=== PATIENT | female | born 1980 | race Caucasian/White ===

== ENCOUNTER 2018-12-12 15:04 | Emergency (ER) | payer OTHER ==
--- NOTE | 2018-12-12 16:15 | EDPHYS ---
Physician Documentation [facility] Name: Luana Israel Age: 38 yrs Sex: Female : 1980 Arrival Date: 12/12/2018 Time: 15:07 Bed 17 Private MD: ED Physician Steve Castaneda HPI: 12/12 16:09 This 38 yrs old Female presents to ER via Ambulatory with complaints of parviz Toothache. 16:09 The patient presents with pain, redness. The problem is located in the left buccal parviz mucosa. Onset: The symptoms/episode began/occurred 3 day(s) ago. Duration: The symptoms are continuous, and are steadily getting worse. Associated signs and symptoms: The patient has no apparent associated signs or symptoms. Severity of symptoms: At their worst the symptoms were mild, moderate. The patient has experienced similar episodes in the past, several times. 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 - Social history:: Smoking status: Patient uses tobacco products, smokes one pack cigarettes per day. - Ebola Screening: : No symptoms or risks identified at this time. - Family history:: not pertinent. ROS: 16:09 Constitutional: Negative for fever, chills, and weight loss, Eyes: Negative for injury, parviz pain, redness, and discharge, Neck: Negative for injury, pain, and swelling, Cardiovascular: Negative for chest pain, palpitations, and edema, Respiratory: Negative for shortness of breath, cough, wheezing, and pleuritic chest pain, Abdomen/GI: Negative for abdominal pain, nausea, vomiting, diarrhea, and constipation, Back: Negative for injury and pain, : Negative for injury, bleeding, discharge, and swelling, MS/Extremity: Negative for injury and deformity, Skin: Negative for injury, rash, and discoloration, Neuro: Negative for headache, weakness, numbness, tingling, and seizure. 16:09 ENT: Positive for dental pain. Exam: 16:09 Constitutional: This is a well developed, well nourished patient who is awake, alert, parviz and in no acute distress. Eyes: Pupils equal round and reactive to light, extra-ocular motions intact. Lids and lashes normal. Conjunctiva and sclera are non-icteric and not injected. Cornea within normal limits. Periorbital areas with no swelling, redness, or edema. ENT: Nares patent. No nasal discharge, no septal abnormalities noted. Tympanic membranes are normal and external auditory canals are clear. Oropharynx with no redness, swelling, or masses, exudates, or evidence of obstruction, uvula midline. Mucous membranes moist. Neck: Trachea midline, no thyromegaly or masses palpated, and no cervical lymphadenopathy. Supple, full range of motion without nuchal rigidity, or vertebral point tenderness. No Meningismus. Chest/axilla: Normal chest wall appearance and motion. Nontender with no deformity. No lesions are appreciated. Cardiovascular: Regular rate and rhythm with a normal S1 and S2. No gallops, murmurs, or rubs. Normal PMI, no JVD. No pulse deficits. Respiratory: Lungs have equal breath sounds bilaterally, clear to auscultation and percussion. No rales, rhonchi or wheezes noted. No increased work of breathing, no retractions or nasal flaring. Abdomen/GI: Soft, non-tender, with normal bowel sounds. No distension or tympany. No guarding or rebound. No evidence of tenderness throughout. Back: No spinal tenderness. No costovertebral tenderness. Full range of motion. Skin: Warm, dry with normal turgor. Normal color with no rashes, no lesions, and no evidence of cellulitis. MS/ Extremity: Pulses equal, no cyanosis. Neurovascular intact. Full, normal range of motion. Neuro: Awake and alert, GCS 15, oriented to person, place, time, and situation. Cranial nerves II-XII grossly intact. Motor strength 5/5 in all extremities. Sensory grossly intact. Cerebellar exam normal. Normal gait. Psych: Awake, alert, with orientation to person, place and time. Behavior, mood, and affect are within normal limits. 16:09 Head/face: Noted is swelling, tenderness, that is moderate. Vital Signs: 15:13 BP 132 / 71; Pulse 100; Resp 18 S; Temp 98.4(O); Pulse Ox 99% on R/A; Weight 95.25 kg; aa5 Height 5 ft. 3 in. (160.02 cm) (R); Pain 10/10; 15:13 Body Mass Index 37.20 (95.25 kg, 160.02 cm) aa5 MDM: 15:32 Patient medically screened. parviz Administered Medications: 16:27 Drug: Augmentin 875 mg Route: PO; hb 16:28 Follow up: Response: Medication administered at discharge. hb 16:27 Drug: [place] (7.5 mg-325 mg) 1 tabs Route: PO; hb 16:28 Follow up: Response: Medication administered at discharge. hb Disposition: 12/12/18 16:14 Discharged to Home. Impression: Dental caries - acute pain. - Condition is Stable. - Discharge Instructions: Dental Pain, Dental Pain, [id number]. - Prescriptions for Amoxicillin 500 mg Oral Capsule - take 1 capsule by ORAL route every 8 hours for 10 days; 30 tablet. Tylenol- Codeine #3 300-30 mg Oral Tablet - take 2 tablets by ORAL route every 6 hours As needed; 24 tablet. - Medication Reconciliation Form, Thank You Letter, Antibiotic Education, Prescription Opioid Use, Work release form form. - Follow up: Private Physician; When: 2 - 3 days; Reason: Recheck today's complaints, Continuance of care, Re-evaluation by your physician. Follow up: Cruzito Pak DDS; When: 2 - 3 days; Reason: Recheck today's complaints, Re-evaluation by your physician. - Problem is new. - Symptoms have improved. Signatures: Steve Castaneda MD MD cha Calderon, Audri, RN RN [facility] Ania Bartlett RN RN Corrections: (The following items were deleted from the chart) 16:32 16:14 12/12/2018 16:14 Discharged to Home. Impression: Dental caries - acute pain. hb Condition is Stable. Forms are Medication Reconciliation Form, Thank You Letter, Antibiotic Education, Prescription Opioid Use. Follow up: Private Physician; When: 2 - 3 days; Reason: Recheck today's complaints, Continuance of care, Re-evaluation by your physician. Follow up: Cruzito Pak; When: 2 - 3 days; Reason: Recheck today's complaints, Re-evaluation by your physician. Problem is new. Symptoms have improved. [facility]
--- NOTE | 2018-12-12 16:15 | ER ---
Nurse's Notes [facility] Name: Luana Israel Age: 38 yrs Sex: Female : 1980 Arrival Date: 12/12/2018 Time: 15:07 Bed 17 Private MD: Diagnosis: Dental caries-acute pain Presentation: 12/12 15:12 Presenting complaint: Patient states: "I started with a toothache a few days ago and aa5 now the whole left side of my face hurts". Transition of care: patient was not received from another setting of care. Onset of symptoms was November 2018. Risk Assessment: Do you want to hurt yourself or someone else? Patient reports no desire to harm self or others. Initial Sepsis Screen: Does the patient meet any 2 criteria? No. Patient's initial sepsis screen is negative. Does the patient have a suspected source of infection? No. Patient's initial sepsis screen is negative. Care prior to arrival: None. 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 - Social history:: Smoking status: Patient uses tobacco products, smokes one pack cigarettes per day. - Ebola Screening: : No symptoms or risks identified at this time. - Family history:: not pertinent. Screenin:00 Abuse screen: Denies threats or abuse. Denies injuries from another. Nutritional hb screening: No deficits noted. Tuberculosis screening: No symptoms or risk factors identified. Fall Risk None identified. Assessment: 16:00 General: Appears in no apparent distress. Behavior is calm, cooperative. Pain: Pain hb currently is 10 out of 10 on a pain scale. Neuro: Level of Consciousness is awake, alert, obeys commands, Oriented to person, place, time, situation. Cardiovascular: Capillary refill < 3 seconds Patient's skin is warm and dry. Respiratory: Airway is patent Trachea midline Respiratory effort is even, unlabored, Respiratory pattern is regular, symmetrical. GI: No signs and/or symptoms were reported involving the gastrointestinal system. : No signs and/or symptoms were reported regarding the genitourinary system. EENT: Reports left upper molar pain. Derm: Skin is intact, is healthy with good turgor. Musculoskeletal: No signs and/or symptoms reported regarding the musculoskeletal system. Vital Signs: 15:13 BP 132 / 71; Pulse 100; Resp 18 S; Temp 98.4(O); Pulse Ox 99% on R/A; Weight 95.25 kg; aa5 Height 5 ft. 3 in. (160.02 cm) (R); Pain 10/10; 15:13 Body Mass Index 37.20 (95.25 kg, 160.02 cm) [facility] ED Course: 15:07 Patient arrived in ED. mr 15:12 Arm band placed on. [facility] 15:13 Triage completed. [facility] 15:32 Steve Castaneda MD is Attending Physician. [facility] 16:00 Patient has correct armband on for positive identification. Bed in low position. Call hb light in reach. Side rails up X 1. 16:12 Ania Bartlett, RN is Primary Nurse. 16:12 Cruzito Pak DDS is Referral Physician. [facility] 16:30 No provider procedures requiring assistance completed. Patient did not have IV access hb during this emergency room visit. Administered Medications: 16:27 Drug: Augmentin 875 mg Route: PO; hb 16:28 Follow up: Response: Medication administered at discharge. hb 16:27 Drug: Angora (7.5 mg-325 mg) 1 tabs Route: PO; hb 16:28 Follow up: Response: Medication administered at discharge. hb Outcome: 16:14 Discharge ordered by . parviz 16:30 Discharged to home ambulatory. hb 16:30 Condition: stable 16:30 Discharge instructions given to patient, Instructed on discharge instructions, follow up and referral plans. medication usage, Demonstrated understanding of instructions, follow-up care, medications, Prescriptions given X 2. 16:32 Patient left the ED. hb Signatures: Steve Castaneda MD MD cha Rivera, Mary mr DaxEm, RN RN [facility] Ania Bartlett, RN RN hb
[2018-12-12] MEDS ORDERED: HYDROCODONE/APAP 7.5/325 MG TAB ONE (16:33)
[2018-12-12] MEDS ORDERED: AMOX/K CLAV 875 MG TAB ONE (16:33)
== END 2018-12-12 16:32 | disposition home or self-care (01) ==
LOC: ER 15:04
DX: K02.9 Dental caries, unspecified (principal); F17.210 Nicotine dependence, cigarettes, uncomplicated
CPT/HCPCS: 99283

== ENCOUNTER 2020-11-26 09:57 | Emergency (ER) | payer SELFPAY ==
--- OUTSIDE RECORDS SUMMARY | 2020-11-26 10:25 | XMS REPORT | Continuity of Care Document ---
:1980 Author Organization [facility] Address [address] [place] [address] [place] [id number] Care Team Providers Name Role Phone Unavailable Unavailable Unavailable Problems This patient has no known problems. Allergies, Adverse Reactions, Alerts This patient has no known allergies or adverse reactions. Medications This patient has no known medications. Procedures This patient has no known procedures. Results This patient has no known results.
[2020-11-26] MEDS ORDERED: SMZ./TMP. 800/160 MG TABLET ONE (13:25)
[2020-11-26] MEDS ORDERED: CODEINE 30MG/APAP 300MG TAB ONE (13:26)
[2020-11-26] MEDS ORDERED: DOXYCYCLINE 100 MG CAP PO ONE (13:26)
--- NOTE | 2020-11-26 13:26 | ER ---
Nurse's Notes [facility] Name: Luana Mcneil Age: 40 yrs Sex: Female : 1980 Arrival Date: 11/26/2020 Time: 10:00 Bed 12 Private MD: Diagnosis: Cellulitis of left upper limb-elbow Presentation: 11/26 10:51 Chief complaint: Patient states: redness and swelling to left elbow X 2 days, thinks iw something bit her. Coronavirus screen: At this time, the client does not indicate any symptoms associated with coronavirus-19. Ebola Screen: Patient negative for fever greater than or equal to 101.5 degrees Fahrenheit, and additional compatible Ebola Virus Disease symptoms Patient denies exposure to infectious person. Patient denies travel to an Ebola-affected area in the 21 days before illness onset. No symptoms or risks identified at this time. Initial Sepsis Screen: Does the patient meet any 2 criteria? No. Patient's initial sepsis screen is negative. Does the patient have a suspected source of infection? No. Patient's initial sepsis screen is negative. Risk Assessment: Do you want to hurt yourself or someone else? Patient reports no desire to harm self or others. Onset of symptoms was November 24, 2020. 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 - Social history:: Smoking status: Patient reports the use of cigarette tobacco products, smokes one pack cigarettes per day. Screenin:40 Abuse screen: Denies threats or abuse. Nutritional screening: No deficits noted. aa5 Tuberculosis screening: No symptoms or risk factors identified. Fall Risk None identified. Assessment: 12:40 General: Appears uncomfortable, Behavior is calm, cooperative. Pain: Complains of pain aa5 in left elbow. Neuro: Level of Consciousness is awake, alert, obeys commands, Oriented to person, place, time, situation. Cardiovascular: Patient's skin is warm and dry. Respiratory: Airway is patent Respiratory effort is even, unlabored, Respiratory pattern is regular, symmetrical. GI: No signs and/or symptoms were reported involving the gastrointestinal system. : No signs and/or symptoms were reported regarding the genitourinary system. EENT: No signs and/or symptoms were reported regarding the EENT system. Derm: Skin is pink, warm \T\ dry. swelling and redness noted to left elbow. Musculoskeletal: Range of motion: intact in all extremities. 13:25 Reassessment: Patient is alert, oriented x 3, equal unlabored respirations, skin aa5 warm/dry/pink. 14:00 Reassessment: Patient is alert, oriented x 3, equal unlabored respirations, skin aa5 warm/dry/pink. Redness and erythema outlined per PA. 14:40 Reassessment: LEFT elbow cleaned with chlorexidine, rinsed with saline, dressed with sr5 sterile gauze pads and kerlix. Patient provided with a sling for comfort. At discharge pt fully AA\T\Ox4, clear speech, steady gait, equal unlabored resp, skin warm/dry/nc exception LEFT elbow. Discharge instructions discussed, teach back provided, steady gait out of ER. Vital Signs: 10:51 BP 113 / 78; Pulse 99; Resp 16; Temp 98.5; Pulse Ox 100% on R/A; Weight 82.55 kg; iw Height 5 ft. 2 in. (157.48 cm); Pain 10/10; 14:40 BP 131 / 74; Pulse 102; Resp 14; Temp 97.2; Pulse Ox 98% on R/A; sr5 10:51 Body Mass Index 33.29 (82.55 kg, 157.48 cm) iw ED Course: 10:00 Patient arrived in ED. as 10:52 Triage completed. iw 12:35 Steve Trevino PA is PHCP. cp 12:36 Jhon Valdovinos MD is Attending Physician. cp 12:40 Patient has correct armband on for positive identification. aa5 13:05 Em Verduzco, RN is Primary Nurse. aa5 14:20 XRAY Elbow LEFT 3 view In Process Unspecified. EDMS 14:40 Dressings: Kerlix X 1; left elbow non-adherent dressing x 1 left elbow. Sling applied sr5 to left arm. 14:40 Patient did not have IV access during this emergency room visit. aa5 14:40 No provider procedures requiring assistance completed. aa5 Administered Medications: 13:25 Drug: Tylenol #3 (300 mg-30 mg) 2 tabs Route: PO; aa5 13:25 Drug: Bactrim (160 mg-800 mg (DS) 1 tablet Route: PO; aa5 13:25 Drug: Doxycycline 100 mg Route: PO; aa5 Outcome: 13:17 Discharge ordered by . margret 14:40 Discharged to home ambulatory, with family. sr5 14:40 Condition: good 14:40 Discharge instructions given to patient, Instructed on discharge instructions, follow up and referral plans. medication usage, wound care, Demonstrated understanding of instructions, follow-up care, medications, wound care, Prescriptions given X 4. 14:41 Patient left the ED. aa5 Signatures: Dispatcher [employer] EDMS Sandra Gutiérrez Irene, RN RN Em Richey RN RN aa5 Steve Trevino PA PA cp Resecker, Yifan, RN RN sr5 Corrections: (The following items were deleted from the chart) 10:53 10:51 Pulse 99bpm; Resp 16bpm; Pulse Ox 100% RA; Temp 98.5F; 82.55 kg; Height 5 ft. 2 iw in.; BMI: 33.2; Pain 10/10; iw 18:59 14:37 Patient left the ED. aa5 aa5
--- NOTE | 2020-11-26 13:26 | EDPHYS ---
Physician Documentation [facility] Name: Luana Mcneil Age: 40 yrs Sex: Female : 1980 Arrival Date: 11/26/2020 Time: 10:00 Bed 12 Private MD: ED Physician Jhon Valdovinos HPI: 11/26 12:50 This 40 yrs old Female presents to ER via Ambulatory with complaints of cp Insect Bite, Elbow Swelling. 12:50 The patient or guardian complains of pain, that is acute, swelling, tenderness. The cp complaints affect the posterior left elbow. 12:50 Context: resulted from possible insect bite. Onset: The symptoms/episode began/occurred cp 2 day(s) ago. Treatment prior to arrival includes: no previous treatment. Associated signs and symptoms: Pertinent positives: erythema, swelling, warmth, of the posterior aspect left elbow, Pertinent negatives: decreased range of motion, fever, numbness, tingling. 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 - Social history:: Smoking status: Patient reports the use of cigarette tobacco products, smokes one pack cigarettes per day. ROS: 12:52 Constitutional: Negative for body aches, chills, fever, poor PO intake. cp 12:52 MS/extremity: Positive for erythema, pain, swelling, tenderness, of the posterior left cp elbow, Negative for injury or acute deformity, decreased range of motion, paresthesias. Exam: 12:57 Constitutional: The patient appears in no acute distress, alert, awake, non-toxic, well cp developed, well nourished. 12:57 Head/Face: Normocephalic, atraumatic. cp 12:57 Cardiovascular: Rate: normal. 12:57 Respiratory: the patient does not display signs of respiratory distress, Respirations: normal, no use of accessory muscles, labored breathing, is not present. 12:57 Abdomen/GI: Exam negative for discomfort, distension, guarding, Inspection: abdomen appears normal. 12:57 Musculoskeletal/extremity: Extremities: grossly normal except: noted in the posterior left elbow: erythema, pain, swelling, tenderness, ROM: full passive range of motion, in the left elbow, mild pain with ROM left elbow, Pulses: noted to be 2+ in the left radial artery. 12:57 Skin: abscess, not appreciated, cellulitis, that is mild, irregular, on the posterior left elbow, no circumferential swelling and/or erythema noted to left elbow joint. Vital Signs: 10:51 BP 113 / 78; Pulse 99; Resp 16; Temp 98.5; Pulse Ox 100% on R/A; Weight 82.55 kg; iw Height 5 ft. 2 in. (157.48 cm); Pain 10/10; 14:40 BP 131 / 74; Pulse 102; Resp 14; Temp 97.2; Pulse Ox 98% on R/A; sr5 10:51 Body Mass Index 33.29 (82.55 kg, 157.48 cm) iw MDM: 12:49 Patient medically screened. cp 12:55 Differential diagnosis: closed fracture, cellulitis, abscess, bursitis, septic joint. cp 13:16 Counseling: I had a detailed discussion with the patient and/or guardian regarding: the cp historical points, exam findings, and any diagnostic results supporting the discharge/admit diagnosis, to return to the emergency department if symptoms worsen or persist or if there are any questions or concerns that arise at home. 13:16 Response to treatment: the patient's symptoms have mildly improved after treatment, and cp as a result, I will discharge patient. Special discussion: Return to ED worsening swelling redness, fever, worsening pain. 14:02 Data reviewed: vital signs, nurses notes, radiologic studies, plain films. Test cp interpretation: by ED physician or midlevel provider: xrays of left elbow negative for foreign body, negative for effusion. 11/26 13:17 Order name: Urine Dipstick--Ancillary (enter results); Complete Time: 14:04 bd 11/26 14:04 Interpretation: Normal except: UESTR TRACE. cp 11/26 13:17 Order name: Urine --Ancillary (enter results); Complete Time: 14:04 bd 11/26 12:53 Order name: XRAY Elbow LEFT 3 view cp 11/26 12:53 Order name: Misc. Order: outline area of erythema; Complete Time: 14:11 cp 11/26 12:53 Order name: Urine Test (obtain specimen); Complete Time: 13:18 cp Administered Medications: 13:25 Drug: Tylenol #3 (300 mg-30 mg) 2 tabs Route: PO; aa5 13:25 Drug: Bactrim (160 mg-800 mg (DS) 1 tablet Route: PO; aa5 13:25 Drug: Doxycycline 100 mg Route: PO; aa5 Disposition: 14:40 Chart complete. cp 15:55 Co-signature as Attending Physician, Jhon Valdovinos MD. ma2 Disposition: 11/26/20 13:17 Discharged to Home. Impression: Cellulitis of left upper limb - elbow. - Condition is Stable. - Discharge Instructions: Cellulitis, Adult. - Prescriptions for Doxycycline Hyclate 100 mg Oral Tablet - take 1 tablet by ORAL route every 12 hours; 20 tablet. Diclofenac Sodium 75 mg Oral Tablet, Delayed Release (E.C.) - take 1 tablet by ORAL route 2 times per day; 20 tablet. Bactrim DS 800- 160 mg Oral Tablet - take 1 tablet by ORAL route every 12 hours for 10 days; 20 tablet. Diflucan 150 mg Oral Tablet - take 1 tablet by ORAL route one time for 1 day; 1 tablet. - Medication Reconciliation Form, Thank You Letter, Antibiotic Education, Prescription Opioid Use, Work release form form. - Follow up: Private Physician; When: 1 - 2 days; Reason: Recheck today's complaints. - Problem is new. - Symptoms have improved. Signatures: Dispatcher [employer] Margarita Plunkett RN RN Em Verduzco RN RN aa5 Steve Trevino PA PA cp Jhon Valdovinos MD MD ma2 Corrections: (The following items were deleted from the chart) 14:18 13:21 Elbow Left 3 View ordered. EDAR EDAR 14:37 13:17 11/26/2020 13:17 Discharged to Home. Impression: Cellulitis of left upper limb - aa5 elbow. Condition is Stable. Forms are Medication Reconciliation Form, Thank You Letter, Antibiotic Education, Prescription Opioid Use. Follow up: Private Physician; When: 1 - 2 days; Reason: Recheck today's complaints. Problem is new. Symptoms have improved. cp
[2020-11-26 13:57] LABS: Urine Blood NEGATIVE (NEG); Urine Glucose NEGATIVE (NEG); Urine Protein NEGATIVE (NEG)
--- NOTE | 2020-11-26 14:41 | RAD REPORT ---
EXAM DESCRIPTION: RAD - Elbow Left 3 View - 11/26/2020 2:20 pm CLINICAL HISTORY: Pain;Swellingpossible insect bite COMPARISON: None. FINDINGS: No fracture is identified and no elevated posterior fat pad. There is no dislocation or pe riosteal reaction noted. No air or foreign body in the soft tissues. Soft tissues along the posterom edial aspect of the elbow joint are edematous. IMPRESSION: Soft tissue swelling with no air or foreign body seen. No bone or joint abnormality of the left elbow.
[2020-11-26 14:42] VITALS: BP 113/78; TEMP 98.5; O2SAT 100
== END 2020-11-26 14:37 | disposition home or self-care (01) ==
LOC: ER 09:57
DX: L03.114 Cellulitis of left upper limb (principal); F17.210 Nicotine dependence, cigarettes, uncomplicated
CPT/HCPCS: 81003; 81025; 99284

== ENCOUNTER 2023-08-28 15:31 | Emergency (ER) | payer SELFPAY ==
--- OUTSIDE RECORDS SUMMARY | 2023-08-28 15:34 | XMS REPORT | Continuity of Care Document ---
:1980 Author Organization [facility] t Address [address] [place] [address] Care Team Providers Name Role Phone Unavailable Unavailable Unavailable Problems This patient has no known problems. Allergies, Adverse Reactions, Alerts This patient has no known allergies or adverse reactions. Medications This patient has no known medications. Procedures This patient has no known procedures. Encounters Start End Encounter Admission Attending Care Care Encounter Source Date/Time Date/Time Type Type Clinicians Facility Department ID 2019-11-29 2019-11-29 Emergency E [facility] [id number] 22:11:00 22:11:00 [facility] 2019-08-25 2019-08-25 Emergency E [facility] [id number] 18:46:00 18:46:00 [facility] 2019-04-30 2019-04-30 Emergency E [facility] [id number] 06:41:00 06:41:00 [facility] Results This patient has no known results.
[2023-08-28 16:58] LABS: Urine Bacteria <20 /HPF (<20); Urine Bilirubin NEGATIVE (Negative); Urine Blood Negative (Negative); Urine Clarity Clear (Clear); Urine Color Yellow (Yellow); Urine Glucose NEGATIVE (Negative); Urine Mucus Slight /HPF (None Seen); Urine Protein TRACE (Negative); Urine RBC <5 /HPF (None Seen); Urine Urobilinogen Normal (Normal)
--- NOTE | 2023-08-28 19:11 | EDPHYS ---
Physician Documentation [facility] Name: Luana Mcneil Age: 43 yrs Sex: Female : 1980 Arrival Date: 08/28/2023 Time: 15:31 Bed 10 Private MD: ED Physician Tian Bird HPI: 08/28 16:15 This 43 yrs old Female presents to ER via Ambulatory with complaints of STD Exposure. cp 16:15 The patient presents with a possible exposure to a sexually transmitted disease, cp vaginal discharge, that is white discharge. Onset: The symptoms/episode began/occurred today. Associated signs and symptoms: Pertinent negatives: fever, urinary frequency, vaginal bleeding, abdominal pain. 16:15 Severity of symptoms: in the emergency department the symptoms are unchanged, despite cp home interventions. The patient is sexually active, does not use protection during intercourse. 16:15 Patient expresses concern about possible STI. Reports recent release from incarceration cp and c/o vaginal discharge with odor. 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 - Social history:: Smoking status: Patient reports the use of cigarette tobacco products. ROS: 16:20 Constitutional: Negative for chills, fever, cp 16:20 Cardiovascular: Negative for chest pain, cp 16:20 Respiratory: Negative for cough, shortness of breath, 16:20 Abdomen/GI: Negative for abdominal pain, nausea, vomiting, and diarrhea, 16:20 : Positive for vaginal discharge, vaginal odor, Negative for urinary symptoms, pelvic pain, flank pain, vaginal bleeding, 16:20 Neuro: Negative for altered mental status, dizziness, headache, weakness, 16:20 All other systems are negative, Exam: 16:25 Constitutional: The patient appears in no acute distress, alert, awake, non-toxic, well cp developed, well nourished, 16:25 Head/Face: Normocephalic, atraumatic. cp 16:25 Eyes: Periorbital structures: appear normal, Conjunctiva: normal, Sclera: no appreciated abnormality, Lids and lashes: appear normal, bilaterally, 16:25 ENT: External ear(s): are unremarkable, Nose: is normal, Mouth: Lips: moist, Oral mucosa: pink and intact, moist, Posterior pharynx: is normal, airway is patent, no erythema, no exudate, 16:25 Chest/axilla: Inspection: normal, 16:25 Cardiovascular: Rate: normal, Rhythm: regular, 16:25 Respiratory: the patient does not display signs of respiratory distress, Respirations: normal, no use of accessory muscles, no retractions, labored breathing, is not present, 16:25 Abdomen/GI: Inspection: abdomen appears normal, Palpation: abdomen is soft and non-tender, in all quadrants, 16:25 Back: CVA tenderness, is absent, 16:25 : Pelvic Exam: External exam: is normal, Speculum exam: no bleeding is noted, no cervicitis, bimanual exam reveals no cervical motion tenderness, discharge, white, the nurse was present for the exam, Sexual behavior: the patient is sexually active, Vital Signs: 15:45 BP 141 / 92; Pulse 96; Resp 16; Temp 98.5; Pulse Ox 99% on R/A; Weight 96.16 kg; Height iw 5 ft. 3 in. ; Pain 0/10; 15:45 Body Mass Index 37.55 (96.16 kg, 160.02 cm) iw 15:45 Pain Scale: Adult iw MDM: 15:46 Patient medically screened. cp 19:10 Data reviewed: vital signs, nurses notes, lab test result(s). cp 19:10 Differential diagnosis: ectopic , molar preganancy, pelvic inflammatory cp disease, urinary tract infection, vaginosis. 08/29 17:13 ED course: . ED course: unable to contact patient at number in chart to inform of lab cp results. 08/28 16:05 Order name: GC (Abimael/Chl) Probe VAGINAL (Do not order if pt is under 13, order Culture cp instead) 08/28 16:05 Order name: Urinalysis W/Microscopic; Complete Time: 17:28 cp 08/28 17:28 Interpretation: Reviewed. cp 08/28 16:05 Order name: PREGU; Complete Time: 17:28 cp 08/28 16:05 Order name: Wet Prep; Complete Time: 19:03 cp Administered Medications: 08/28 19:45 Not Given (Patient Eloped): rocephin (ceftriaxone)250 mg IM once iw 19:45 Not Given (Patient Eloped): azithromycin1 grams PO once iw Disposition Summary: 08/28/23 19:11 Discharge Ordered Notes: Location: Home cp Problem: new cp Symptoms: have improved cp Condition: Stable cp Diagnosis - Acute vaginitis cp - Encounter for screening for infections with a predominantly sexual mode of cp transmission Followup: cp - With: Private Physician - When: 2 - 3 days - Reason: Worsening of condition Discharge Instructions: - Discharge Summary Sheet cp - Bacterial Vaginosis cp - Health Maintenance, Female cp - Preventing Sexually Transmitted Infections, Adult cp Forms: - Medication Reconciliation Form cp - Thank You Letter cp - Antibiotic Education cp - Prescription Opioid Use cp - Patient Portal Instructions cp - Leadership Thank You Letter cp Prescriptions: - Metronidazole 500 mg Oral tablet - take 1 tablet ORAL route every 12 hours for 7 days; 14 tablet; Refills: 0, cp Product Selection Permitted Addendum: 08/30/2023 09:02 Co-signature as Attending Physician, Tian Bird MD I reviewed the patient's care r n provided by the Advanced Practice Provider and agree with the diagnosis and treatment plan. Signatures: Dispatcher [employer] Margarita Plunkett RN RN iw Nieto, Roman, MD MD rn Page, Corey, PA PA cp
--- NOTE | 2023-08-28 19:11 | ER ---
Nurse's Notes [facility] Name: Luana Mcneil Age: 43 yrs Sex: Female : 1980 Arrival Date: 08/28/2023 Time: 15:31 Bed 10 Private MD: Diagnosis: Acute vaginitis;Encounter for screening for infections with a predominantly sexual mode of transmission Presentation: 08/28 15:45 Chief complaint: Patient states: abnormal vaginal discharge and odor today, she just iw got out of senior care 9 days ago , denies pain, denies burning with urination. Coronavirus screen: At this time, the client does not indicate any symptoms associated with coronavirus-19. Ebola Screen: Patient negative for fever greater than or equal to 101.5 degrees Fahrenheit, and additional compatible Ebola Virus Disease symptoms Patient denies exposure to infectious person. Patient denies travel to an Ebola-affected area in the 21 days before illness onset. No symptoms or risks identified at this time. Initial Sepsis Screen: Does the patient meet any 2 criteria? No. Patient's initial sepsis screen is negative. Does the patient have a suspected source of infection? No. Patient's initial sepsis screen is negative. Risk Assessment: Do you want to hurt yourself or someone else? Patient reports no desire to harm self or others. Onset of symptoms was August 28, 2023. 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 - Social history:: Smoking status: Patient reports the use of cigarette tobacco products. Screenin:44 [facility] ED Fall Risk Assessment (Adult) Score/Fall Risk Level 0 - 2 = Low Risk. Abuse iw screen: Denies threats or abuse. Denies injuries from another. Nutritional screening: No deficits noted. Tuberculosis screening: No symptoms or risk factors identified. Assessment: 16:00 General: Appears in no apparent distress. comfortable, Behavior is calm, cooperative. iw 19:26 Reassessment: pt not in room. iw Vital Signs: 15:45 BP 141 / 92; Pulse 96; Resp 16; Temp 98.5; Pulse Ox 99% on R/A; Weight 96.16 kg; Height iw 5 ft. 3 in. ; Pain 0/10; 15:45 Body Mass Index 37.55 (96.16 kg, 160.02 cm) iw 15:45 Pain Scale: Adult iw ED Course: 15:32 Patient arrived in ED. rg4 15:35 Steve Trevino PA is PHCP. cp 15:35 Tian Bird MD is Attending Physician. cp 15:45 Margarita Sharma RN is Primary Nurse. iw 15:47 Triage completed. iw 15:47 Arm band placed on. iw Administered Medications: 19:45 Not Given (Patient Eloped): rocephin (ceftriaxone)250 mg IM once iw 19:45 Not Given (Patient Eloped): azithromycin1 grams PO once iw Outcome: 19:11 Discharge ordered by MD. cp 19:45 Discharged to pt left before d/c instructions iw 19:46 Patient left the ED. iw Signatures: Margarita Sharma, RN RN iw Steve Trevino PA PA cp Garcia, Rubi rg4
[2023-08-28 20:25] VITALS: BP 141/92; TEMP 98.5; O2SAT 99
[2023-09-01 10:35] LABS: C.trachomatis RNA,TMA Not Detected (Not Detected)
== END 2023-08-28 19:46 | disposition home or self-care (01) ==
LOC: ER 15:31
DX: Z11.3 Encounter for screening for infections with a predominantly sexual mode of transmission (principal); N76.0 Acute vaginitis
CPT/HCPCS: 81001; 81025; 87210; 87490; 87590; 99281

== ENCOUNTER 2023-09-17 19:10 | Emergency (ER) | payer SELFPAY ==
--- OUTSIDE RECORDS SUMMARY | 2023-09-17 19:15 | XMS REPORT | Continuity of Care Document ---
:1980 Author Organization [facility] t Address [address] [place] [id number] Care Team Providers Name Role Phone Unavailable Unavailable Unavailable Problems This patient has no known problems. Allergies, Adverse Reactions, Alerts This patient has no known allergies or adverse reactions. Medications This patient has no known medications. Procedures This patient has no known procedures. Results This patient has no known results.
--- NOTE | 2023-09-17 19:27 | EDPHYS ---
Physician Documentation [facility] Name: Luaan Mcneil Age: 43 yrs Sex: Female : 1980 Arrival Date: 09/17/2023 Time: 19:10 Bed 11 Private MD: ED Physician Mian Sheppard HPI: 09/17 20:54 This 43 yrs old Female presents to ER via Ambulatory with complaints of Arm Pain. kb 20:54 Patient is a 43-year-old female who presents for hand pain. States she woke up with kb pain and swelling to her hand, states it got better throughout the day until she went to work and was carrying heavy trays. Reports she has had intermittent tingling and numbness to her hand since carrying the trays. States she came in because she left work early and they told her she needed a work note to come back.. Historical: - PMHx: 19:21 Bipolar disorder; Seizure; rv - Immunization history:: Adult Immunizations up to date. - Social history:: Smoking status: Patient reports the use of cigarette tobacco products, smokes one pack cigarettes per day. ROS: 19:26 Constitutional: Negative for fever, chills, and weight loss, kb 19:26 MS/extremity: Positive for pain, paresthesias, swelling, of the right hand, 19:26 All other systems are negative, Exam: 19:49 Constitutional: This is a well developed, well nourished patient who is awake, alert, kb and in no acute distress. Head/Face: Normocephalic, atraumatic. ENT: Moist Mucous membranes Cardiovascular: Regular rate Respiratory: Respirations even and unlabored. No increased work of breathing. Talking in full sentences Skin: Warm, dry with normal turgor. Normal color. MS/ Extremity: Pulses equal, no cyanosis. Neurovascular intact. Full, normal range of motion. Neuro: Awake and alert, GCS 15, oriented to person, place, time, and situation. Moves all extremities. Normal gait. Vital Signs: 19:19 BP 138 / 86; Pulse 92; Resp 18; Temp 98; Pulse Ox 99% ; Weight 81.65 kg; Height 5 ft. 3 rv in. ; 19:19 Body Mass Index 31.89 (81.65 kg, 160.02 cm) rv MDM: 19:18 Patient medically screened. kb 20:53 Differential diagnosis: contusion, tendonitis, carpal tunnel, arthritis. Data reviewed: kb vital signs, nurses notes. Test considered but Not performed: X-ray: x-ray of hand considered, but pt denies injury or trauma, full rom of hand. Counseling: I had a detailed discussion with the patient and/or guardian regarding the historical points, exam findings, and any diagnostic results supporting the discharge/admit diagnosis, the need for outpatient follow up, a family practitioner, to return to the emergency department if symptoms worsen or persist or if there are any questions or concerns that arise at home. 09/17 19:27 Order name: Wrist Splint kb Administered Medications: No medications were administered Disposition: 20:52 I was immediately available on-site in the Emergency Department for consultation in the ms3 care of the patient. Disposition Summary: 09/17/23 19:27 Discharge Ordered Notes: Location: Home kb Condition: Stable kb Diagnosis - Pain in right hand kb Followup: kb - With: Emergency Department - When: As needed - Reason: Worsening of condition Followup: kb - With: Private Physician - When: 2 - 3 days - Reason: Recheck today's complaints, Continuance of care, Re-evaluation by your physician Discharge Instructions: - Discharge Summary Sheet kb - Carpal Tunnel Syndrome, [id number] kb - Rheumatoid Arthritis, Owes-da-Ewef kb Forms: - Work release form kb - Medication Reconciliation Form kb - Thank You Letter kb - Antibiotic Education kb - Prescription Opioid Use kb - Patient Portal Instructions kb - Leadership Thank You Letter kb Prescriptions: - Prednisone 20 mg Oral Tablet - take 1 tablet ORAL route once daily for 5 days; 5 tablet; Refills: 0, Product kb Selection Permitted Signatures: Natasha Mello, KIRSTIE-C PHARMACY HELPER-CkGeoff Quevedo, RN RN Mian Alanis, DO ms3
--- NOTE | 2023-09-17 19:27 | ER ---
Nurse's Notes [facility] Name: Luana Mcneil Age: 43 yrs Sex: Female : 1980 Arrival Date: 09/17/2023 Time: 19:10 Bed 11 Private MD: Diagnosis: Pain in right hand Presentation: 09/17 19:19 Chief complaint: Patient states: SWELLING ON THE RIGHT HAND EARLIER, WENT TO WORK, rv [employer], SWELLING WENT DOWN, BUT THERE IS STILL PAIN ON THE RIGHT ARM. DENIES INJURY. PAIN X1 DAY. Coronavirus screen: At this time, the client does not indicate any symptoms associated with coronavirus-19. Ebola Screen: No symptoms or risks identified at this time. Initial Sepsis Screen: Does the patient meet any 2 criteria? No. Patient's initial sepsis screen is negative. Does the patient have a suspected source of infection? No. Patient's initial sepsis screen is negative. Risk Assessment: Do you want to hurt yourself or someone else? Patient reports no desire to harm self or others. Onset of symptoms was September 17, 2023. 19:19 Method Of Arrival: Ambulatory rv 19:19 Acuity: BRAYAN 5 rv Triage Assessment: 19:21 General: Appears in no apparent distress. Behavior is calm, cooperative. Pain: rv Complains of pain in right arm. Neuro: Level of Consciousness is awake, alert, obeys commands, Oriented to person, place, time, situation. Cardiovascular: Capillary refill < 3 seconds Patient's skin is warm and dry. Respiratory: Airway is patent Respiratory effort is even, unlabored. GI: No signs and/or symptoms were reported involving the gastrointestinal system. : No signs and/or symptoms were reported regarding the genitourinary system. Derm: Skin is intact. Historical: - PMHx: 19:21 Bipolar disorder; Seizure; rv - Immunization history:: Adult Immunizations up to date. - Social history:: Smoking status: Patient reports the use of cigarette tobacco products, smokes one pack cigarettes per day. Screenin:30 [facility] ED Fall Risk Assessment (Adult) History of falling in the last 3 months, kb3 including since admission No falls in past 3 months (0 pts) Confusion or Disorientation No (0 pts) Intoxicated or Sedated No (0 pts) Impaired Gait No (0 pts) Mobility Assist Device Used No (0 pt) Altered Elimination No (0 pt) Score/Fall Risk Level 0 - 2 = Low Risk Oriented to surroundings. Abuse screen: Denies threats or abuse. Denies injuries from another. Nutritional screening: No deficits noted. Tuberculosis screening: No symptoms or risk factors identified. Assessment: 19:20 General: Appears in no apparent distress. Behavior is calm, cooperative. Pain: kb3 Complains of pain in dorsal aspect of right forearm and right wrist Pain radiates to right arm Pain currently is 8 out of 10 on a pain scale. Quality of pain is described as burning, stinging. Vital Signs: 19:19 BP 138 / 86; Pulse 92; Resp 18; Temp 98; Pulse Ox 99% ; Weight 81.65 kg; Height 5 ft. 3 rv in. ; 19:19 Body Mass Index 31.89 (81.65 kg, 160.02 cm) rv ED Course: 19:16 Patient arrived in ED. gm2 19:17 [facility] kb 19:17 Mian Sheppard DO is Attending Physician. kb 19:21 Triage completed. rv 19:22 Arm band placed on right wrist. rv 19:30 Patient has correct armband on for positive identification. Provided Education on: plan kb3 of care. 19:30 No provider procedures requiring assistance completed. Patient did not have IV access kb3 during this emergency room visit. Administered Medications: No medications were administered Medication: 19:30 VIS not applicable for this client. kb3 Outcome: 19:27 Discharge ordered by MD. kb 19:44 Discharged to home ambulatory, kb3 19:44 Condition: stable 19:44 Discharge instructions given to patient, 19:48 Patient left the ED. kb3 Signatures: Natasha Mello FNP-C FNP-Ckb Vicente, Ronaldo, RN RN rv Bradberry, Kelly, RN RN yu3 Chani Ontiveros gm2
[2023-09-17 21:22] VITALS: BP 138/86; TEMP 98; O2SAT 99
== END 2023-09-17 19:48 | disposition home or self-care (01) ==
LOC: ER 19:10
DX: M79.641 Pain in right hand (principal); F31.9 Bipolar disorder, unspecified; F17.210 Nicotine dependence, cigarettes, uncomplicated
CPT/HCPCS: 99282

== ENCOUNTER 2023-09-25 19:07 | Emergency (ER) | payer SELFPAY ==
--- OUTSIDE RECORDS SUMMARY | 2023-09-25 19:11 | XMS REPORT | Continuity of Care Document ---
:1980 Author Organization [facility] t Address [address] [place] [address] [place] [id number] Care Team Providers Name Role Phone Unavailable Unavailable Unavailable Problems This patient has no known problems. Allergies, Adverse Reactions, Alerts This patient has no known allergies or adverse reactions. Medications This patient has no known medications. Procedures This patient has no known procedures. Results This patient has no known results.
[2023-09-25] MEDS ORDERED: ACETAMINOPHEN 500 MG TAB ONE (19:52)
--- NOTE | 2023-09-25 20:53 | RAD REPORT ---
EXAM DESCRIPTION: RAD - Chest Pa And Lat (2 Views) - 09/25/2023 8:46 pm CLINICAL HISTORY: Cough;Fever Chest pain. COMPARISON: <Comparisons> FINDINGS: The lungs are clear. The heart is normal in size. No displaced fractures. IMPRESSION: No acute or concerning finding suspected.
[2023-09-25 21:10] LABS: SARS-CoV-2 Antigen Rapid Res Negative (Negative)
--- NOTE | 2023-09-25 21:32 | ER ---
Nurse's Notes [facility] Name: Luana Mcneil Age: 43 yrs Sex: Female : 1980 Arrival Date: 09/25/2023 Time: 19:07 Bed 12 Private MD: Diagnosis: Fever, unspecified;Myalgia;Bipolar disorder, unspecified Presentation: 09/25 19:14 Chief complaint: Patient states: Fever and cough onset yesterday. Coronavirus screen: cm10 Vaccine status: Patient reports being unvaccinated. Client denies travel out of the [place] in the last 14 days. Ebola Screen: Patient denies travel to an Ebola-affected area in the 21 days before illness onset. No symptoms or risks identified at this time. Initial Sepsis Screen: Does the patient meet any 2 criteria? Temp <36.0*C (96.8*F)) or > 38.3*C (100.9*F). HR > 90 bpm. Does the patient have a suspected source of infection? No. Patient's initial sepsis screen is negative. Risk Assessment: Do you want to hurt yourself or someone else? Patient reports no desire to harm self or others. Onset of symptoms was September 25, 2023. 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 - Social history:: Smoking status: Patient reports the use of cigarette tobacco products, smokes one-half pack cigarettes per day. Screenin:30 [facility] ED Fall Risk Assessment (Adult) History of falling in the last 3 months, me1 including since admission No falls in past 3 months (0 pts) Confusion or Disorientation No (0 pts) Intoxicated or Sedated No (0 pts) Impaired Gait No (0 pts) Mobility Assist Device Used No (0 pt) Altered Elimination No (0 pt) Score/Fall Risk Level 0 - 2 = Low Risk Maintained a safe environment, Provided non-skid footwear, Hourly rounding (assess needs \T\ fall precautionary measures) done. Abuse screen: Denies threats or abuse. Nutritional screening: No deficits noted. Tuberculosis screening: No symptoms or risk factors identified. Assessment: 20:30 General: Appears uncomfortable, well groomed, well developed, well nourished, Behavior me1 is calm, cooperative, appropriate for age, Reports fever for fatigue for 1-2 days, fever and cough that started yesterday. Pain: Complains of pain in generalized Pain does not radiate. Pain currently is 7 out of 10 on a pain scale. Quality of pain is described as aching, Pain began 2-3 days ago. Is continuous. Neuro: Level of Consciousness is awake, alert, obeys commands, Oriented to person, place, time, situation, Appropriate for age. Cardiovascular: Capillary refill < 3 seconds Patient's skin is warm and dry. Respiratory: Reports cough that is persistent Airway is patent Respiratory effort is even, unlabored, Respiratory pattern is regular, symmetrical. Vital Signs: 19:14 BP 140 / 59; Pulse 130; Resp 18; Temp 101.2; Pulse Ox 100% on R/A; Weight 83.46 kg (R); cm10 Height 5 ft. 3 in. (R); 21:50 BP 137 / 68; Pulse 104; Resp 18; Temp 99.2(O); Pulse Ox 99% on R/A; me1 19:14 Body Mass Index 32.59 (83.46 kg, 160.02 cm) cm10 ED Course: 19:10 Patient arrived in ED. kj1 19:11 Mian Sheppard DO is Attending Physician. ms3 19:15 Triage completed. cm10 19:15 Arm band placed on Patient placed in an exam room, on a stretcher. cm10 19:35 Joann Vargas, RN is Primary Nurse. me1 19:42 Flu Sent. me1 20:30 Patient has correct armband on for positive identification. Bed in low position. Call me1 light in reach. Side rails up X 1. Provided Education on: POC. Verbalized understanding. . 20:30 No provider procedures requiring assistance completed. Patient did not have IV access me1 during this emergency room visit. 20:43 SARS RAPID Sent. me1 20:48 Chest Pa And Lat (2 Views) XRAY In Process Unspecified. EDMS Administered Medications: 19:42 Drug: Acetaminophen PO 1000 mg PO once Route: PO; me1 20:36 Follow up: Response: No adverse reaction me1 Medication: 20:30 VIS not applicable for this client. me1 Outcome: 21:31 Discharge ordered by . ms3 21:50 Discharged to home ambulatory, me1 21:50 Condition: stable 21:50 Discharge instructions given to patient, Instructed on discharge instructions, follow up and referral plans. medication usage, Demonstrated understanding of instructions, follow-up care, medications, Prescriptions given X 1, 21:51 Patient left the ED. me1 Signatures: Dispatcher [employer] EDMS Frances Mello kj1 Mian Sheppard DO DO ms3 Lottie Gutiérrez, RN RN cm10 Joann Vargas RN RN me1
--- NOTE | 2023-09-25 21:32 | EDPHYS ---
Physician Documentation [facility] Name: Luana Mcneil Age: 43 yrs Sex: Female : 1980 Arrival Date: 09/25/2023 Time: 19:07 Bed 12 Private MD: ED Physician Mian Sheppard HPI: 09/25 19:19 This 43 yrs old Female presents to ER via Ambulatory with complaints of Fever. ms3 19:19 43-year-old female with past medical history of bipolar disorder, paranoid ms3 schizophrenia, seizures presents to the emergency department for fever, cough that began yesterday. Patient states she also has body ache and headaches. Patient describes her pain a /. Patient denies alleviating or inciting factors. Patient states she took ibuprofen 3 hours prior to arrival without relief. 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 - Social history:: Smoking status: Patient reports the use of cigarette tobacco products, smokes one-half pack cigarettes per day. ROS: 19:19 Neck: Negative for injury, pain, and swelling, ms3 19:19 Abdomen/GI: Negative for abdominal pain, nausea, vomiting, diarrhea, and constipation, MS/Extremity: Negative for injury and deformity, Skin: Negative for injury, rash, and discoloration, 19:19 Constitutional: Positive for body aches, chills, fever, 19:19 All other systems are negative, Exam: 19:19 Constitutional: This is a well developed, well nourished patient who is awake, alert, ms3 and in no acute distress. Head/Face: Normocephalic, atraumatic. Chest/axilla: Normal chest wall appearance and motion. Nontender with no deformity. Respiratory: Lungs have equal breath sounds bilaterally, clear to auscultation and percussion. No rales, rhonchi or wheezes noted. No increased work of breathing, no retractions or nasal flaring. Skin: Warm, dry with normal turgor. Normal color with no rashes, no lesions, and no evidence of cellulitis. 19:19 Cardiovascular: Rate: tachycardic, Rhythm: regular, Pulses: no pulse deficits are appreciated, Heart sounds: normal, normal S1and S2, Vital Signs: 19:14 BP 140 / 59; Pulse 130; Resp 18; Temp 101.2; Pulse Ox 100% on R/A; Weight 83.46 kg (R); cm10 Height 5 ft. 3 in. (R); 21:50 BP 137 / 68; Pulse 104; Resp 18; Temp 99.2(O); Pulse Ox 99% on R/A; me1 19:14 Body Mass Index 32.59 (83.46 kg, 160.02 cm) cm10 MDM: 19:19 Patient medically screened. ms3 19:19 Differential diagnosis: viral Infection, URI, Flu. ms3 21:35 Data reviewed: vital signs, nurses notes, lab test result(s), radiologic studies, plain ms3 films, and as a result, I will discharge patient. I considered the following discharge prescriptions or medication management in the emergency department Medications were administered in the Emergency Department. See MAR. Independent interpretation of the following test(s) in the Emergency Department X-Ray: My interpretation is CXR image reviewed by me does not reveal PNA. Care significantly affected by the following chronic conditions: Bipolar d/o. Counseling: I had a detailed discussion with the patient and/or guardian regarding the historical points, exam findings, and any diagnostic results supporting the discharge/admit diagnosis, lab results, radiology results, the need for outpatient follow up, to return to the emergency department if symptoms worsen or persist or if there are any questions or concerns that arise at home. Special discussion: I discussed with the patient/guardian in detail that at this point there is no indication for admission to the hospital. It is understood, however, that if the symptoms persist or worsen the patient needs to return immediately for re-evaluation. ED course: Discussed negative chest x-ray, COVID, flu with patient. Patient to follow-up with her psychiatrist for continuation of Effexor, patient to follow-up with primary care physician in 2 to 3 days for reevaluation. Patient understands and agrees with plan. All questions were answered. On reevaluation patient is alert and oriented x4, no apparent distress, nontoxic-appearing, speaking full sentences. 09/25 19:19 Order name: Flu; Complete Time: 20:33 ms3 09/25 20:34 Order name: SARS RAPID; Complete Time: 21:15 ms3 09/25 20:34 Order name: Chest Pa And Lat (2 Views) XRAY; Complete Time: 20:55 ms3 09/25 19:19 Order name: PO challenge; Complete Time: 19:42 ms3 Administered Medications: 19:42 Drug: Acetaminophen PO 1000 mg PO once Route: PO; me1 20:36 Follow up: Response: No adverse reaction me1 Disposition Summary: 09/25/23 21:31 Discharge Ordered Notes: Location: Home ms3 Condition: Stable ms3 Diagnosis - Fever, unspecified ms3 - Myalgia ms3 - Bipolar disorder, unspecified ms3 Followup: ms3 - With: Private Physician - When: 2 - 3 days - Reason: Recheck today's complaints Discharge Instructions: - Discharge Summary Sheet ms3 - Fever, Adult ms3 - Fever, Adult, [id number] ms3 Forms: - Medication Reconciliation Form ms3 - Thank You Letter ms3 - Antibiotic Education ms3 - Prescription Opioid Use ms3 - Patient Portal Instructions ms3 - Leadership Thank You Letter ms3 - Work release form me1 Prescriptions: - Effexor XR 150 mg Oral Capsule, ER 24 hr - take 1 capsule ORAL route once daily; 10 capsule; Refills: 0, Product Selection ms3 Permitted Signatures: Dispatcher [employer] Mian Borrero DO DO ms3 Lottie Gutiérrez, RN RN cm10 Joann Vargas RN RN me1
[2023-09-25 22:40] VITALS: BP 137/68; TEMP 99.2; O2SAT 99
== END 2023-09-25 21:51 | disposition home or self-care (01) ==
LOC: ER 19:07
DX: R50.9 Fever, unspecified (principal); M79.10 Myalgia, unspecified site; F31.9 Bipolar disorder, unspecified; Z11.52 Encounter for screening for COVID-19
CPT/HCPCS: 36415; 71046; 87804; 87811; 99284

== ENCOUNTER 2023-09-30 15:02 | Emergency (ER) | payer SELFPAY ==
--- OUTSIDE RECORDS SUMMARY | 2023-09-30 15:06 | XMS REPORT | Continuity of Care Document ---
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
[2023-09-30] MEDS ORDERED: METOCLOPRAMIDE 10 MG/2mL INJ ONE (15:36)
[2023-09-30] MEDS ORDERED: DIPHENHYDRAMINE 50 MG/ML VIAL ONE (15:36)
[2023-09-30] MEDS ORDERED: KETOROLAC 30 MG/ML INJ ONE (15:36)
[2023-09-30] MEDS ORDERED: NA CHLORIDE 0.9% 1,000 ML ONE (15:37)
[2023-09-30 15:47] LABS: Absolute Lymphocytes (CBC) 1.5 K/uL (0.7-4.9); Hematocrit 35.9 % (36.0-45.0); Lymphocytes % 11.3 % (15.3-44.8); MCV 90.9 fL (80-100); MPV 8.4 fL (7.6-11.3); Platelets 200 thou/uL (152-406); RBC Red Blood Cell Count 3.95 M/uL (3.86-4.86)
--- NOTE | 2023-09-30 15:58 | RAD REPORT ---
EXAM DESCRIPTION: RADChest Single View09/30/2023 3:31 pm CLINICAL HISTORY: COUGH COMPARISON: Chest Pa And Lat (2 Views) dated 09/25/2023 TECHNIQUE: Portable AP view of the chest. FINDINGS: The lungs are clear. No pneumothorax or effusion. The cardiomediastinal contours are unre markable. IMPRESSION: No acute cardiopulmonary process.
[2023-09-30 16:02] LABS: Albumin 2.8 g/dL (3.4-5.0); Bilirubin Total 0.2 mg/dL (0.2-1.0); Potassium 3.5 mEq/L (3.5-5.1); Protein, Total 7.6 g/dL (6.4-8.2)
[2023-09-30 17:15] LABS: Urine Bacteria <20 /HPF (<20); Urine Mucus Slight /HPF (None Seen); Urine RBC <5 /HPF (None Seen)
[2023-09-30 17:16] LABS: Specific Gravity 1.012 (1.005-1.030)
--- NOTE | 2023-09-30 17:25 | EDPHYS ---
Physician Documentation [facility] Name: Luana Mcneil Age: 43 yrs Sex: Female : 1980 Arrival Date: 09/30/2023 Time: 15:02 Bed 6 Private MD: ED Physician Cullen Amaro HPI: 09/30 15:08 This 43 yrs old Female presents to ER via Unassigned with complaints of URI ec2 s/s. 15:08 Patient arrives today for 1 week of URI signs and symptoms. States that she has been ec2 having cough and cold symptoms along with sore throat, body aches as well as decreased p.o. intake and fatigue with as well as some diarrhea symptoms. Patient also reports some bouts of vomiting as well. Denies any chest pain or difficulty breathing or abdominal pain.. 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 - Social history:: Smoking status: Patient reports the use of cigarette tobacco products, smokes one-half pack cigarettes per day. ROS: 15:08 Constitutional: as per hpi ec2 Exam: 15:08 Constitutional: GEN: NAD Head: atraumatic Eyes: EOMI Ears: External ears are ec2 normal. CV: Tachycardia LUNGS: no respiratory distress ABD: non-distended, soft, nontender, no guarding, nonrigid SKIN: no evidence of rashes MSK: no evidence of trauma NEURO: moves all extremities equally Vital Signs: 15:09 BP 114 / 45; Pulse 112; Resp 18 S; Temp 98; Pulse Ox 100% on R/A; Weight 83.91 kg (R); kc6 Height 5 ft. 3 in. (R); 17:10 BP 103 / 50; Pulse 105; Resp 16 S; Pulse Ox 100% on R/A; kc6 15:09 Body Mass Index 32.77 (83.91 kg, 160.02 cm) kc6 MDM: 15:06 Patient medically screened. ec2 15:08 ED course: Patient arrives today for persistent URI symptoms symptoms. Examination ec2 remarkable for tachycardic individual was otherwise in no acute distress with reassuring respiratory examination and otherwise reassuring abdominal examination. Will obtain lab work, viral swabs, chest x-ray, treat the patient's symptoms and reassess the patient. Currently considering process such as viral infection which I suspect, will suspicion for pneumonia, low suspicion for intra-abdominal infection.. 15:32 Data reviewed: vital signs. ED course: EKG independently reviewed and interpreted by ec2 fl, shows sinus tachycardia, rate 104, no acute ST segment elevations, nonconcerning intervals.. 15:50 ED course: CBC shows slight leukocytosis. Patient does meet SIRS criteria however no ec2 confirmed source and duration of symptoms would be more consistent with a viral process. Will proceed with current management. . 16:00 ED course: Chest x-ray shows no acute intrathoracic process. Strep swab negative. . ec2 16:20 ED course: Metabolic profile shows some diminished renal function with a GFR of 69. ec2 Negative COVID testing, negative flu testing. . 16:26 ED course: On reassessment patient with improvement in her headache and nausea ec2 symptoms.. 17:18 ED course: Urine is noninfectious appearing, negative testing.. ec2 17:24 ED course: Will discharge home, suspect viral process. I considered other process such ec2 as bacteremia however patient without specific risk factors, no skin complaints, doubt cellulitis, low suspicion for endocarditis given lack of murmur.. 09/30 15:07 Order name: CBC with Diff; Complete Time: 15:49 ec2 09/30 15:07 Order name: CMP; Complete Time: 16:20 ec2 09/30 15:07 Order name: COVID-19 SARS RT PCR; Complete Time: 16:20 ec2 09/30 15:07 Order name: Influenza Screen (a \T\ B); Complete Time: 16:20 ec2 09/30 15:07 Order name: Strep ec2 09/30 15:10 Order name: UAM; Complete Time: 17:18 ec2 09/30 15:10 Order name: Test, Urine; Complete Time: 17:18 ec2 09/30 15:53 Order name: Throat Culture EDAL 09/30 17:19 Order name: Urine Culture EDAL 09/30 15:07 Order name: CXR XRAY; Complete Time: 16:00 ec2 09/30 15:07 Order name: EKG; Complete Time: 15:11 ec2 09/30 15:07 Order name: EKG - Nurse/Tech; Complete Time: 15:33 ec2 Administered Medications: 15:33 Drug: NS 0.9% IV 1000 ml IV at 1 bolus Per protocol; 1000 mL bolus Route: IV; Rate: 1 kc6 bolus; Site: right antecubital; 17:11 Follow up: Response: No adverse reaction; IV Status: Completed infusion; IV Intake: kc6 1000ml 15:33 Drug: diphenhydrAMINE IVP 50 mg IVP once Route: IVP; Site: right antecubital; kc6 17:11 Follow up: Response: No adverse reaction kc6 15:33 Drug: metoCLOPramide IVP 10 mg IVP once; over 1 to 2 minutes Route: IVP; Site: right kc6 antecubital; 17:11 Follow up: Response: No adverse reaction; Nausea is decreased kc6 15:33 Drug: Ketorolac IVP 15 mg IVP once Route: IVP; Site: right antecubital; kc6 17:11 Follow up: Response: No adverse reaction; Pain is decreased kc6 Disposition Summary: 09/30/23 17:25 Discharge Ordered Notes: Location: Home ec2 Condition: Stable ec2 Diagnosis - Viral infection, unspecified ec2 Followup: ec2 - With: Private Physician - When: - Reason: Recheck today's complaints Discharge Instructions: - Discharge Summary Sheet ec2 - Viral Illness, Adult ec2 Forms: - Work release form iw - Medication Reconciliation Form ec2 - Thank You Letter ec2 - Antibiotic Education ec2 - Prescription Opioid Use ec2 - Patient Portal Instructions ec2 - Leadership Thank You Letter ec2 Prescriptions: - Reglan 10 mg Oral Tablet - take 1 tablet ORAL route every 6 hours take 30 minutes before meals and at ec2 bedtime; 20 tablet; Refills: 0, Product Selection Permitted Signatures: Dispatcher [employer] Elsa Choe RN RN kc6 Cullen Amaro MD MD ec2 Corrections: (The following items were deleted from the chart) 16:56 16:50 Maldonado ordered. ec2 ec2
--- NOTE | 2023-09-30 17:25 | ER ---
Nurse's Notes [facility] Name: Luana Mcneil Age: 43 yrs Sex: Female : 1980 Arrival Date: 09/30/2023 Time: 15:02 Bed 6 Private MD: Diagnosis: Viral infection, unspecified Presentation: 09/30 15:09 Chief complaint: EMS states: pt was here last week for flu like symptoms. pt reports kc6 general weakness, n/v/d x1 week. BGL en route 120. Coronavirus screen: At this time, the client does not indicate any symptoms associated with coronavirus-19. Ebola Screen: No symptoms or risks identified at this time. Initial Sepsis Screen: Does the patient meet any 2 criteria? HR > 90 bpm. Does the patient have a suspected source of infection? No. Patient's initial sepsis screen is negative. Risk Assessment: Do you want to hurt yourself or someone else? Patient reports no desire to harm self or others. Onset of symptoms was September 30, 2023. 15:09 Method Of Arrival: EMS: [facility] kc6 15:09 Acuity: BRAYAN 3 kc6 Triage Assessment: 15:10 General: Appears in no apparent distress. uncomfortable, Behavior is calm, cooperative, kc6 appropriate for age, Reports chills for fever for feeling ill for fatigue for. EENT: No signs and/or symptoms were reported regarding the EENT system. Neuro: Level of Consciousness is awake, alert, obeys commands, Oriented to person, place, time, situation, Appropriate for age. Cardiovascular: Capillary refill < 3 seconds. Respiratory: Reports shortness of breath Airway is patent Trachea midline Respiratory effort is even, unlabored, Respiratory pattern is regular, symmetrical. GI: Abdomen is round non-distended, Bowel sounds present X 4 quads. Reports diarrhea, nausea, vomiting. : No signs and/or symptoms were reported regarding the genitourinary system. Derm: No signs and/or symptoms reported regarding the dermatologic system. Skin is intact, is healthy with good turgor, Skin is pink, warm \T\ dry. Musculoskeletal: No signs and/or symptoms reported regarding the musculoskeletal system. Circulation, motion, and sensation intact. Capillary refill < 3 seconds, Range of motion: intact in all extremities. 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 - Social history:: Smoking status: Patient reports the use of cigarette tobacco products, smokes one-half pack cigarettes per day. Screenin:18 [facility] ED Fall Risk Assessment (Adult) History of falling in the last 3 months, kc6 including since admission No falls in past 3 months (0 pts) Confusion or Disorientation No (0 pts) Intoxicated or Sedated No (0 pts) Impaired Gait No (0 pts) Mobility Assist Device Used No (0 pt) Altered Elimination No (0 pt) Score/Fall Risk Level 0 - 2 = Low Risk. Abuse screen: Denies threats or abuse. Denies injuries from another. Nutritional screening: No deficits noted. Tuberculosis screening: No symptoms or risk factors identified. Assessment: 15:18 Reassessment: please see triage assessment. [facility] 16:18 Reassessment: Patient appears in no apparent distress at this time. No changes from [facility] previously documented assessment. Patient and/or family updated on plan of care and expected duration. Pain level reassessed. Patient is alert, oriented x 3, equal unlabored respirations, skin warm/dry/pink. 17:18 Reassessment: Patient appears in no apparent distress at this time. No changes from [facility] previously documented assessment. Patient and/or family updated on plan of care and expected duration. Pain level reassessed. Patient is alert, oriented x 3, equal unlabored respirations, skin warm/dry/pink. Vital Signs: 15:09 BP 114 / 45; Pulse 112; Resp 18 S; Temp 98; Pulse Ox 100% on R/A; Weight 83.91 kg (R); kc6 Height 5 ft. 3 in. (R); 17:10 BP 103 / 50; Pulse 105; Resp 16 S; Pulse Ox 100% on R/A; kc6 15:09 Body Mass Index 32.77 (83.91 kg, 160.02 cm) [facility] ED Course: 15:06 Patient arrived in ED. iw 15:06 Cullen Amaro MD is Attending Physician. ec2 15:08 Elsa Urbina, RN is Primary Nurse. kc6 15:10 Triage completed. kc6 15:10 Arm band placed on. kc6 15:18 Patient has correct armband on for positive identification. Placed in gown. Bed in low kc6 position. Call light in reach. Side rails up X2. Client placed on continuous cardiac and pulse oximetry monitoring. NIBP monitoring applied. 15:18 Patient maintains SpO2 saturation greater than 95% on room air. kc6 15:22 Strep Sent. mb9 15:22 Influenza Screen (a \T\ B) Sent. mb9 15:22 COVID-19 SARS RT PCR Sent. mb9 15:30 CMP Sent. mb9 15:30 CBC with Diff Sent. mb9 15:30 Inserted saline lock: 22 gauge in right antecubital area, using aseptic technique. mb9 Blood collected. 15:33 CXR XRAY In Process Unspecified. EDMS Administered Medications: 15:33 Drug: NS 0.9% IV 1000 ml IV at 1 bolus Per protocol; 1000 mL bolus Route: IV; Rate: 1 kc6 bolus; Site: right antecubital; 17:11 Follow up: Response: No adverse reaction; IV Status: Completed infusion; IV Intake: kc6 1000ml 15:33 Drug: diphenhydrAMINE IVP 50 mg IVP once Route: IVP; Site: right antecubital; kc6 17:11 Follow up: Response: No adverse reaction kc6 15:33 Drug: metoCLOPramide IVP 10 mg IVP once; over 1 to 2 minutes Route: IVP; Site: right kc6 antecubital; 17:11 Follow up: Response: No adverse reaction; Nausea is decreased kc6 15:33 Drug: Ketorolac IVP 15 mg IVP once Route: IVP; Site: right antecubital; kc6 17:11 Follow up: Response: No adverse reaction; Pain is decreased kc6 Medication: 15:30 VIS not applicable for this client. mb9 Intake: 17:11 IV: 1000ml; Total: 1000ml. kc6 Outcome: 17:25 Discharge ordered by . ec2 18:19 Patient left the ED. iw Addendum: 10/04/2023 11:00 Addendum: Culture Results: Positive urine culture. [phone]. 10/05/2023 11:22 Addendum: Culture Results: Positive urine culture. Phone call Attempt #2 [employer]. h b Signatures: Dispatcher [employer] Margarita Plunkett RN RN iw Baxter, Heather, RN RN hb Campbell, Kaitlyn, RN RN kc6 Sydnee, Elsa Ruby RN RN mb9 Cullen Amaro MD MD ec2
[2023-09-30 18:44] VITALS: BP 103/50; TEMP 98; O2SAT 100
--- NOTE | 2023-10-05 14:02 | EKG ---
Test Date: 2023-09-30 Test Time: 15:26:47 Engine Pilot: BALTAZAR MEASUREMENT RESULTS: Intervals: Rate: 104 TN: 122 QRSD: 82 QT: 314 QTc: 412 [place]: P: 48 TN: 122 QRS: 60 T: 56 INTERPRETIVE STATEMENTS: Sinus tachycardia Otherwise normal ECG Compared to ECG 07/17/2000 10:18:00 Sinus rhythm no longer present Electronically Signed On 10-05-23 13:45:47 ASSISTED LIVING EXECUTIVE DIRECTOR by Jose E Nair
== END 2023-09-30 18:19 | disposition home or self-care (01) ==
LOC: ER 15:02
DX: B34.9 Viral infection, unspecified (principal); Z11.52 Encounter for screening for COVID-19
CPT/HCPCS: 36415; 71045; 80053; 81001; 81025; 85025; 87070; 87077; 87081; 87086; 87088; 87186; 87635; 87804; 93005; 96361; 96374; 96375; 99285; J1200; J2765; J7030

== ENCOUNTER 2024-10-26 22:33 | Emergency (ER) | payer OTHER, SELFPAY ==
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
[2024-10-26 23:49] LABS: Specific Gravity 1.028 (1.005-1.030)
[2024-10-26 23:52] LABS: Specific Gravity 1.028 (1.005-1.030); Sqamous Epithelial <5 /HPF (None Seen); Urine Bacteria <20 /HPF (<20); Urine Bilirubin NEGATIVE (Negative); Urine Blood 3+ (OVER) (Negative); Urine Clarity Extremely Turbid (Clear); Urine Color Yellow (Yellow); Urine Culture Reflex Order NOT NEEDED; Urine Glucose NEGATIVE (Negative); Urine Ketones NEGATIVE (Negative); Urine Micro Reflex YN NO BILL MICROSCOPIC; Urine Mucus Slight /HPF (None Seen); Urine Nitrite NEGATIVE (Negative); Urine Protein TRACE (Negative); Urine Urobilinogen Normal (Normal); Urine WBC <5 /HPF (<5)
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
--- NOTE | 2024-10-26 23:57 | ER ---
Nurse's Notes [facility] Name: Luana Mcneil Age: 44 yrs Sex: Female : 1980 Arrival Date: 10/26/2024 Time: 22:33 Bed 20 Private MD: Diagnosis: Acute cystitis with hematuria Presentation: 10/26 22:58 Chief complaint: Patient states: pain that started Wednesday in lower pelvic that vc1 radiates to back and blood in urine. It is not constant but comes and goes with sharp pains. Coronavirus screen: Client denies travel out of the [place] in the last 14 days. At this time, the client does not indicate any symptoms associated with coronavirus-19. Ebola Screen: Patient negative for fever greater than or equal to 101.5 degrees Fahrenheit, and additional compatible Ebola Virus Disease symptoms Patient denies exposure to infectious person. Patient denies travel to an Ebola-affected area in the 21 days before illness onset. No symptoms or risks identified at this time. Initial Sepsis Screen: Does the patient meet any 2 criteria? No. Patient's initial sepsis screen is negative. Does the patient have a suspected source of infection? No. Patient's initial sepsis screen is negative. Risk Assessment: Do you want to hurt yourself or someone else? Patient reports no desire to harm self or others. Onset of symptoms was October 24, 2024. 22:58 Method Of Arrival: Ambulatory vc1 22:58 Acuity: BRAYAN 3 vc1 Triage Assessment: 23:02 General: Appears in no apparent distress. Behavior is calm, cooperative, appropriate vc1 for age. Pain: Complains of pain in suprapubic area, right inguinal area and left inguinal area Pain radiates to left low back and right low back Pain currently is 9 out of 10 on a pain scale. Quality of pain is described as radiating, sharp, shooting, Pain began 2-3 days ago. Is intermittent, Noted to be grimacing. EENT: No deficits noted. No signs and/or symptoms were reported regarding the EENT system. Neuro: Level of Consciousness is awake, alert, obeys commands, Oriented to person, place, time, situation, Appropriate for age. Cardiovascular: Capillary refill < 3 seconds Patient's skin is warm and dry. Respiratory: Airway is patent Respiratory effort is even, unlabored, Respiratory pattern is regular, symmetrical. GI: No deficits noted. No signs and/or symptoms were reported involving the gastrointestinal system. : Reports blood in urine. Derm: Skin is intact, is healthy with good turgor, Skin is dry, Skin is normal, Skin temperature is warm. Musculoskeletal: Reports pain in left low back, right low back, suprapubic area, right iliac crest and left iliac crest. METERMAN: 23:02 LMP 10/12/2024, unknown vc1 Historical: - Allergies: 23:00 No Known Allergies; vc1 - Home Meds: 23:00 Effexor Oral 175 mg daily [Active]; Tegretol 200 mg oral tablet 2 times per day vc1 [Active]; gabapentin 600 mg oral tablet 2 times per day [Active]; - PMHx: 23:00 Bipolar disorder; panic attack; Seizure; neuropathy; vc1 - PSHx: 23:00 Ligation of fallopian tube; vc1 - Immunization history:: Client reports having NOT received the Covid vaccine. - Infectious Disease History:: Denies. - Social history:: Smoking status: Patient reports the use of cigarette tobacco products, smokes one-half pack cigarettes per day. Screenin:05 Abuse screen: Denies threats or abuse. Abuse screen: Denies threats or abuse. vc1 Nutritional screening: No deficits noted. Tuberculosis screening: No symptoms or risk factors identified. 23:10 [facility] ED Fall Risk Assessment (Adult) History of falling in the last 3 months, me1 including since admission No falls in past 3 months (0 pts) Confusion or Disorientation No (0 pts) Intoxicated or Sedated No (0 pts) Impaired Gait No (0 pts) Mobility Assist Device Used No (0 pt) Altered Elimination No (0 pt) Score/Fall Risk Level 0 - 2 = Low Risk. Assessment: 23:10 General: Appears uncomfortable, ill, well groomed, well developed, well nourished, me1 Behavior is calm, cooperative, appropriate for age, Reports pain that started Wednesday in lower pelvic that radiates to back and blood in urine. It is not constant but comes and goes with sharp pains. Pain: Complains of pain in left inguinal area and right inguinal area and suprapubic area Pain radiates to left iliac crest and right iliac crest and back and right low back and left low back Pain currently is 7 out of 10 on a pain scale. Quality of pain is described as sharp, Pain began 2-3 days ago. Is continuous. Neuro: Level of Consciousness is awake, alert, obeys commands, Oriented to person, place, time, situation, Appropriate for age. Cardiovascular: Patient's skin is warm and dry. Respiratory: Airway is patent Respiratory effort is even, unlabored, Respiratory pattern is regular, symmetrical. GI: No signs and/or symptoms were reported involving the gastrointestinal system. : Reports burning with urination, and foul smelling urine pain in suprapubic area in lower back. EENT: No signs and/or symptoms were reported regarding the EENT system. Derm: Skin is intact, is healthy with good turgor, Skin is pink, warm \T\ dry. Musculoskeletal: No signs and/or symptoms reported regarding the musculoskeletal system. Circulation, motion, and sensation intact. Range of motion: intact in all extremities. Vital Signs: 22:58 BP 128 / 90; Pulse 82; Resp 15; Temp 97.8; Pulse Ox 100% ; Weight 77.11 kg; Height 5 vc1 ft. 3 in. ; Pain 9/10; 23:00 BP 132 / 76; Pulse 72; Resp 16; Pulse Ox 96% ; me1 01/ 00:16 BP 122 / 76; Pulse 74; Resp 16; Pulse Ox 97% ; cp4 10/26 22:58 Body Mass Index 30.11 (77.11 kg, 160.02 cm) vc1 01 22:58 Pain Scale: Adult vc1 ED Course: 10/26 22:42 Patient arrived in ED. jj6 22:42 Shakira Palm PA-C is PHCP. sb4 22:42 Leonardo Cabrera MD is Attending Physician. sb4 23:00 Triage completed. vc1 23:02 Arm band placed on right wrist. vc1 23:02 Patient has correct armband on for positive identification. Bed in low position. Call vc1 light in reach. Pulse ox on. NIBP on. 23:06 Joann Vargas, RN is Primary Nurse. me1 23:09 Test, Urine Sent. me1 23:10 Provided Education on: POC. Verbalized understanding.. Client placed on continuous [facility] cardiac and pulse oximetry monitoring. NIBP monitoring applied. Pulse ox on. NIBP on. 23:10 Urine collected: clean catch specimen, cloudy. me1 23:10 No provider procedures requiring assistance completed. Patient did not have IV access me1 during this emergency room visit. Administered Medications: 10/27 00:14 Drug: Macrobid PO 100 mg PO once; administer with food Route: PO; cp4 00:17 Follow up: Response: No adverse reaction cp4 Medication: 10/26 23:02 VIS not applicable for this client. vc1 Outcome: 23:57 Discharge ordered by . sb4 10/27 00:16 Discharged to home ambulatory, cp4 Condition: stable Discharge instructions given to patient, Instructed on discharge instructions, follow up and referral plans. medication usage, Demonstrated understanding of instructions, follow-up care, medications, Prescriptions given X 1, 00:17 Patient left the ED. cp4 Signatures: Siria Ivoryj6 Lo Dorsey RN RN vc1 Shakira Palm PA-C PA-C sb4 Joann Vargas RN RN me1 Rowan Nolen cp4 Corrections: (The following items were deleted from the chart) 10/26 23:10 22:58 Chief complaint: Patient states: pain that started Wednesday in lower pelvic that me1 radiates to back and blood in urine. It is not constant but comes and goes with sharp pains. vc1 23:36 23:10 Urinalysis+U.LAB.BRZ drawn and sent. me1 EDMS 23:36 23:10 Test, Urine+UC.LAB.BRZ drawn and sent. me1 EDMS 23:36 23:10 Urinalysis W/Microscopic+U.LAB.BRZ drawn and sent. me1 EDMS
[2024-10-27] MEDS ORDERED: NITROFURAN MACRO 100 MG CAP PO ONE (00:11)
[2024-10-27 07:37] VITALS: TEMP 97.8
[2024-10-27 07:40] VITALS: BP 122/76; O2SAT 97
== END 2024-10-27 00:17 | disposition home or self-care (01) ==
LOC: ER 22:33
DX: N30.01 Acute cystitis with hematuria (principal); F17.210 Nicotine dependence, cigarettes, uncomplicated
CPT/HCPCS: 81001; 81025; 99284

== ENCOUNTER 2024-11-03 20:46 | Emergency (ER) | payer OTHER ==
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
[2024-11-03] MEDS ORDERED: KETOROLAC 30 MG/ML INJ ONE (21:04)
[2024-11-03] MEDS ORDERED: HYDROCODONE/APAP 5/325 MG TAB ONE (21:04)
[2024-11-03] MEDS ORDERED: AMOX/K CLAV 875 MG TAB ONE (21:06)
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
[2024-11-03 22:48] VITALS: TEMP 97.8
[2024-11-03 22:49] VITALS: BP 126/64; O2SAT 95
== END 2024-11-03 22:44 | disposition home or self-care (01) ==
LOC: ER 20:46
DX: S60.211A Contusion of right wrist, initial encounter (principal); Y04.1XXA Assault by human bite, initial encounter; N93.9 Abnormal uterine and vaginal bleeding, unspecified
CPT/HCPCS: 96372; 99284

== ENCOUNTER 2024-11-07 13:30 | Emergency (ER) | payer OTHER ==
--- OUTSIDE RECORDS SUMMARY | 2024-11-07 13:34 | XMS REPORT | Continuity of Care Document ---
Author Name Unknown Address [address] [place] [address] [facility] Address 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 Marcie bowman Venlafaxine HCl 37.5 MG oral Tablet 2023-10 00:00: 00 08-10 04:59 :00 No [id number] 37.5mg QD Take 1 tablet (37.5 mg total) by mouth daily for 7 days. Marcie bowman Acetaminoph en (TYLENOL OR) 2023-10 10:21: 35 07-25 00:00 :00 No Take by mouth. Marcie bowman Naproxen 500 MG oral Tablet 2023-10 00:00: 00 Yes [id number] 500mg Q.5D Take 1 tablet (500 mg total) by mouth 2 times daily as needed. Marcie bowman Venlafaxine HCl 75 MG oral Tablet 2023-10 00:00: 00 08-02 04:59 :00 No [id number] 75mg QD Take 1 tablet (75 mg [...] Administere d (J1030) 06-01 15:33: 55 No [id number] 40mg 40 mg, Physician Administer ed, ONCE, [...] MG oral Tablet 05-15 00:00: 00 Yes [id number] 15mg QD Take 1 tablet (15 mg [...] at bedtime. Marcie bowman TRIMETHOPRI M-POLYMYXIN B 57202-0.1 UNIT/ML-% ophthalmic Solution 04-09 00:00: 00 05-15 00:00 :00 No [id number] 1[drp] Q4H Apply 1 drop to eye [...] 01-19 00:00: 00 04-09 00:00 :00 No [id number] 2{puff} Q.25D Inhale 2 puffs into the lungs every 6 hours as needed for wheezing or shortness of breath. Marcie bowman Benzonatate 200 MG oral Capsule 01-19 00:00: 00 04-09 00:00 :00 No [id number] 200mg Q.[id number] 3D Take 1 capsule (200 mg total) by mouth 3 times daily as needed for cough. Marcie bowman Amoxicillin 875 MG oral Tablet 01-19 00:00: 00 04-09 00:00 :00 No [id number] 875mg Take 1 tablet (875 mg total) by mouth 2 times daily. Marcie bowman Methocarbam ol 500 MG oral Tablet 01-18 00:00: 00 05-15 00:00 :00 No 500mg Q.[id number] 3D Take 1 tablet (500 mg total) [...] mg total) by mouth 2 times daily. Marcei bowman Carbamazepi ne (TEGretol) 200 MG oral [...] End Date/Time Encounter Type Admission Type Attending Rust Care Department Encounter ID Source 2024-10-31 00:00:00 2024-10-31 00:00:00 Outpatient MD MARCIE SAVAGE [id number] Marcie Seybmartita 2024-10-29 00:00:00 2024-10-29 00:00:00 Outpatient ADRIEN JEFFERS [id number] Marcie Seybmartita 2024-10-29 00:00:00 2024-10-29 00:00:00 Outpatient COLE BLANTON [id number] Marcie Seybmartita 2024-09-29 00:00:00 2024-09-29 00:00:00 Outpatient COLE BLANTON [id number] Marcie Shane 2024-09-29 00:00:00 2024-09-29 00:00:00 Outpatient COLE BLANTON [id number] Marcie Seybmartita 2024-09-29 00:00:00 2024-09-29 00:00:00 Outpatient DO, COLE GUO [id number] Marcie Seybold 2024-09-29 00:00:00 2024-09-29 00:00:00 Outpatient MD MARCIE ASVAGE [id number] Marcie Seybold 2024-09-29 00:00:00 2024-09-29 00:00:00 Outpatient ALIBHAI, ADRIEN GUO [id number] Marcie Seybold 2024-09-29 00:00:00 2024-09-29 00:00:00 Outpatient ALIBHAI, ADRIEN GUO [id number] Marcie Seybold 2024-09-29 00:00:00 2024-09-29 00:00:00 Outpatient DO, COLE GUO [id number] Marcie Seybold 2024-09-05 08:30:00 2024-09-05 08:30:00 Outpatient DO, COLE GUO [id number] Marcie Seybold 2024-08-24 00:00:00 2024-08-24 00:00:00 Outpatient ALIBHAI, ADRIEN GUO [id number] Marcie Seybold 2024-08-24 00:00:00 2024-08-24 00:00:00 Outpatient DO, COLE GUO [id number] Marcie Seybold 2024-08-10 00:00:00 2024-08-10 00:00:00 Outpatient ALIBHAI, ADRIEN GUO [id number] Marcie Seybold 2024-08-10 00:00:00 2024-08-10 00:00:00 Outpatient ALIBHAI, ADRIEN GUO [id number] Marcie Seybold 2024-08-03 15:30:00 2024-08-03 15:30:00 Outpatient SOBIA SALGADO [id number] Marcie Seybold 2024-07-25 08:00:00 2024-07-25 08:00:00 Outpatient DO, COLE GUO [id number] Marcie Seybold 2024-07-10 00:00:00 2024-07-10 00:00:00 Outpatient CRISTÓBAL HENRIQUEZ MARCIE GUO [id number] [facility] 2024-07-10 00:00:00 2024-07-10 00:00:00 Outpatient ADRIEN JEFFERS MARCIE GUO [id number] [facility] 2024-07-10 00:00:00 2024-07-10 00:00:00 Outpatient ALIBHRICH, ADRIEN MARCIE GUO [id number] [facility] 2024-06-29 08:30:00 2024-06-29 08:30:00 Outpatient SOBIA SALGADO [id number] [facility] 2024-06-08 00:00:00 2024-06-08 00:00:00 Outpatient MD MARCIE SAVAGE [id number] [facility] 2024-06-06 00:00:00 2024-06-06 00:00:00 Outpatient CRISTÓBAL HENRIQUEZ [id number] [facility]24-[facility]:00:00 2024-06-06 00:00:00 Outpatient ALIMARY, ADRIEN MARCIE GU[facility] [id number] [facility] 2024-06-01 14:00:00 2024-06-01 14:00:00 [id number] [facility] 2024-05-29 14:50:00 2024-05-29 14:50:00 Outpatient MARLOBAL LIZAMA [id number] [facility] 2024-05-24 09:20:00 2024-05-24 09:20:00 Outpatient GIO, DAKOTA GUO [id number] [facility] 2024-05-23 09:15:00 2024-05-23 09:15:00 Outpatient GUCCI CORONA [id number] [facility] 2024-05-18 00:00:00 2024-05-18 00:00:00 Outpatient FRANCISCORICH ADRIEN GUO [id number] [facility] 2024-05-18 00:00:00 2024-05-18 00:00:00 Outpatient CRISTÓBAL HENRIQUEZ MARCIE GUO [id number] [facility] 2024-05-15 08:45:00 2024-05-15 08:45:00 Outpatient ROQUE MARCIE MARCIE [id number] [facility] 2024-05-15 08:30:00 2024-05-15 08:30:00 Outpatient MARCIE MARCIE [id number] [facility] 2024-05-15 08:00:00 2024-05-15 08:00:00 Outpatient CRISTÓBAL HENRIQUEZ MARCIE MARCIE [id number] [facility] 2024-05-11 09:30:00 2024-05-11 09:30:00 Outpatient ADONIS STEEL MARCIE GUO [id number] [facility] 2024-05-11 08:45:00 2024-05-11 08:45:00 Outpatient GUCCI CORONA [id number] [facility] 2024-05-10 00:00:00 2024-05-10 00:00:00 Outpatient ADRIEN JEFFERS [id number] [facility] 2024-05-06 00:00:00 2024-05-06 00:00:00 Outpatient [facility] [id number] [facility]24-04-10 00:00:00 2024-04-10 00:00:00 Outpatient MD MARCIE SAVAGE [id number] [facility] 2024-04-09 14:45:00 2024-04-09 14:45:00 Outpatient DONALD GAFFNEY [id number] [facility] 2024-04-09 00:00:00 2024-04-09 00:00:00 Outpatient ADRIEN JEFFERS [id number] [facility] 2024-03-22 07:58:28 2024-03-22 07:58:28 Outpatient [facility] [id number] Bal Kerr 2024-03-21 13:45:44 2024-03-21 13:45:[address] [facility] [id number] Bal Kerr 2024-03-21 13:30:00 2024-03-21 13:30:00 Outpatient VINOD JIMÉNEZ MARCIE GUO [id number] [facility] 2024-03-21 08:00:00 2024-03-21 08:00:00 Outpatient SHERRI MEREDITH MARCIE GUO [id number] [facility] 2024-03-21 07:00:00 2024-03-21 07:00:00 Outpatient LORRAINE HUGHSE MARCIE GUO [id number] [facility] 2024-03-02 15:45:00 2024-03-02 15:45:00 Outpatient OU, SHAY GUO [id number] [facility] 2024-03-02 00:00:00 2024-03-02 00:00:00 Outpatient OU, SHAY GUO [id number] [facility] 2024-02-29 00:00:00 2024-02-29 00:00:00 Outpatient ADRIEN JEFFERS [id number] [facility] 2024-02-01 00:00:00 2024-02-01 00:00:00 Outpatient ADRIEN JEFFERS [id number] [facility] 2024-01-31 15:30:00 2024-01-31 15:30:00 Outpatient CRISTÓBAL HENRIQUEZ [id number] [facility] 2024-01-27 09:00:00 2024-01-27 09:00:00 Outpatient CRISTÓBAL HENRIQUEZ [id number] [facility] 2024-01-20 15:15:00 2024-01-20 15:15:00 Outpatient GELA KIM [id number] [facility] 2024-01-19 17:45:00 2024-01-19 17:45:00 Outpatient FEDERICA MOTTA [id number] [facility] 2023-12-31 00:00:00 2023-12-31 00:00:00 Outpatient [facility] JEFFERS [id number] [facility] 2023-12-07 13:30:00 2023-12-07 13:30:00 Outpatient MAYRA LOPEZ MARCIE GUO [id number] [facility] 2023-12-07 08:30:00 2023-12-07 08:30:00 Outpatient ADRIEN JEFFERS MARCIE GUO [id number] [facility] 2019-11-29 22:11:00 2019-11-29 22:11:00 Emergency E [facility] [id number] [facility] 2019-08-25 18:46:00 2019-08-25 18:46:00 Emergency E [facility] [id number] [facility] 2019-04-30 06:41:00 2019-04-30 06:41:00 Emergency E [facility] [id number] [facility] [facility] Results Test Description Test Time Test Comments Results Result Co mments Source
--- NOTE | 2024-11-07 15:05 | RAD REPORT ---
Procedure: Chest Single View HISTORY: Cough COMPARISON: 2022 FINDINGS: The lungs appear clear of acute infiltrate. No significant pleural effusion noted. The heart is normal size. IMPRESSION: No acute abnormality is displayed.
--- NOTE | 2024-11-07 15:26 | RAD REPORT ---
EXAM: CT brain without contrast HISTORY: Dizziness COMPARISON: None TECHNIQUE: Multiple contiguous axial images were obtained and a CT of the brain without contrast.. Sagittal and coronal reconstruction performed. Automated exposure control, adjustment of the mA and/or kV according to patient size, and/or iterative reconstruction. Unless otherwise specified, incidental f indings do not require dedicated imaging follow-up FINDINGS: An intracranial bleed is not seen Ventricles are normal caliber No extra-axial fluid collection noted No significant hypodensity within the brain No fluid within the visualized sinuses or mastoids noted. IMPRESSION: No acute intracranial abnormality noted. If the patient continues to have symptoms to suggest an acute intracranial abnormality then MRI of th e brain would be recommended.
[2024-11-07] MEDS ORDERED: ONDANSETRON 4 MG/2 ML VIAL ONE (16:02)
[2024-11-07] MEDS ORDERED: NA CHLORIDE 0.9% 1,000 ML ONE (16:03)
[2024-11-07] MEDS ORDERED: MECLIZINE HCL 12.5 MG TAB ONE (16:03)
[2024-11-07 16:19] LABS: Absolute Lymphocytes (CBC) 1.6 K/uL (0.7-4.9); Absolute Monocytes 0.4 K/uL (0.1-1.3); Absolute Neutrophil 4.8 K/uL (1.8-8.0); Basophils % 0.2 % (0-1.3); Eosinophils % 0.5 % (0-4.4); Hematocrit 38.5 % (36.0-45.0); Hemoglobin 12.8 g/dL (12.0-15.0); Lymphocytes % 23.7 % (15.3-44.8); MCH 30.1 pg (27.0-35.0); MCHC 33.2 g/dL (32.0-36.0); MCV 90.7 fL (80-100); Monocytes % 5.9 % (3.3-12.3); Neutrophils % 69.7 % (41.7-73.7); Nucleated Red Blood Cells % 0.1 % (0-0); Platelets 229 thou/uL (152-406); RBC Red Blood Cell Count 4.25 M/uL (3.86-4.86); Red Cell Distribution Width 13.6 % (12.1-15.2)
[2024-11-07 16:26] LABS: PT Prothrombin Time 11.3 SECONDS (9.4-12.5); Protime INR 1.08
[2024-11-07 16:28] LABS: Specific Gravity 1.018 (1.005-1.030)
[2024-11-07 16:36] LABS: Specific Gravity 1.018 (1.005-1.030); Urine Bacteria <20 /HPF (<20); Urine Bilirubin NEGATIVE (Negative); Urine Blood 3+ (Negative); Urine Clarity Extremely Turbid (Clear); Urine Color Light-Yellow (Yellow); Urine Culture Reflex Order NOT NEEDED; Urine Glucose NEGATIVE (Negative); Urine Ketones NEGATIVE (Negative); Urine Microscopic Reflex YN ORDER UMIC; Urine Mucus Slight /HPF (None Seen); Urine Nitrite NEGATIVE (Negative); Urine Protein NEGATIVE (Negative); Urine Urobilinogen Normal (Normal); Urine pH 7.5 (5.0-7.0)
[2024-11-07 16:41] LABS: ALT/SGPT 22 U/L (13-56); AST/SGOT 15 U/L (15-37); Albumin 3.3 g/dL (3.4-5.0); Albumin/Globulin Ratio 0.8 (1.1-1.8); Alkaline Phosphatase 74 U/L (45-117); Anion Gap 7.4 mEq/L (5.0-15.0); BUN Blood Urea Nitrogen 9 mg/dL (7-18); Bicarbonate 27 mEq/L (21-32); Bilirubin Total 0.2 mg/dL (0.2-1.0); Globulin 4.1 g/dL (2.3-3.5); Glomerular Filtration Rate 102 ml/min (=/>90); Glucose Level 109 mg/dL (74-106); Magnesium 2.3 mg/dL (1.6-2.4); Potassium 4.4 mEq/L (3.5-5.1); Protein, Total 7.4 g/dL (6.4-8.2); Sodium Level 136 mEq/L (136-145); Troponin High Sensitivity 3.2 pg/mL (<58.9)
[2024-11-07 16:45] LABS: Bilirubin Direct < 0.2 mg/dL (0-0.2)
--- NOTE | 2024-11-07 17:04 | EDPHYS ---
Physician Documentation [facility] Name: Luana Mcneil Age: 44 yrs Sex: Female : 1980 Arrival Date: 11/07/2024 Time: 13:30 Bed DX4 Private MD: ED Physician Steve Castaneda HPI: 11/07 14:10 This 44 yrs old Female presents to ER via EMS with complaints of Dizziness. cp 14:10 The patient presents with dizziness, lightheadedness. Onset: The symptoms/episode cp began/occurred this morning. Context: occurred shelter, just prior to the episode the patient experienced no apparent symptoms. Associated signs and symptoms: Pertinent positives: chest pain, Pertinent negatives: abdominal pain, confusion, diaphoresis, focal weakness, head injury, headache, palpitations, shortness of breath, fever. Patient's baseline: Neuro: alert and fully oriented, Motor: no deficits, Ambulation: walks without assistance, Speech: normal. Historical: - Allergies: 13:45 No Known Allergies; cm10 - Home Meds: 13:45 Tegretol 200 mg Oral tablet 2 times per day [Active]; Effexor Oral 175 mg daily cm10 [Active]; gabapentin 600 mg Oral tablet 2 times per day [Active]; - PMHx: 13:45 Bipolar disorder; neuropathy; panic attack; Seizure; cm10 - PSHx: 13:45 Ligation of fallopian tube; cm10 - Immunization history:: Adult Immunizations up to date. - Infectious Disease History:: Denies. - Social history:: Smoking status: Patient reports the use of cigarette tobacco products, smokes one-half pack cigarettes per day. ROS: 14:15 Constitutional: Negative for body aches, chills, fever, poor PO intake, cp 14:15 Eyes: Negative for injury, pain, redness, and discharge, cp 14:15 Cardiovascular: Positive for chest tightness, 14:15 Abdomen/GI: Positive for nausea, Negative for vomiting, diarrhea, constipation, 14:15 Neuro: Positive for dizziness, Negative for altered mental status, headache, 14:15 ENT: Negative for drainage from ear(s), ear pain, sore throat, difficulty swallowing, cp difficulty handling secretions, 14:15 Respiratory: Negative for cough, shortness of breath, wheezing, 14:15 : Negative for urinary symptoms, 14:15 All other systems are negative, cp Exam: 14:20 Constitutional: The patient appears in no acute distress, alert, awake, cp non-diaphoretic, non-toxic, well developed, well nourished, 14:20 Head/Face: Normocephalic, atraumatic. cp 14:20 Eyes: Periorbital structures: appear normal, Pupils: equal, round, and reactive to cp light and accomodation, Extraocular movements: intact throughout, Conjunctiva: normal, no exudate, no injection, Sclera: no appreciated abnormality, Lids and lashes: appear normal, bilaterally, 14:20 ENT: External ear(s): are unremarkable, Nose: is normal, Mouth: Lips: moist, Oral mucosa: moist, Posterior pharynx: Airway: no evidence of obstruction, patent, 14:20 Neck: C-spine: vertebral tenderness, is not appreciated, crepitus, is not appreciated, cp 14:20 Chest/axilla: Inspection: normal, 14:20 Cardiovascular: Rate: normal, Rhythm: regular, Edema: is not appreciated, JVD: is not appreciated, 14:20 Respiratory: the patient does not display signs of respiratory distress, Respirations: normal, no use of accessory muscles, no retractions, labored breathing, is not present, Breath sounds: are clear throughout, no decreased breath sounds, no stridor, no wheezing, 14:20 Abdomen/GI: Exam negative for discomfort, distension, guarding, Inspection: abdomen appears normal, 14:20 Back: CVA tenderness, is absent, 14:20 Neuro: Orientation: to person, place \T\ time. Mentation: is normal, Cerebellar function: is grossly normal, Motor: moves all fours, strength is normal, Gait: is steady, at a normal pace, without difficulty, 17:05 ECG was reviewed by the Attending Physician. cp Vital Signs: 13:44 BP 117 / 75; Pulse 85; Resp 15; Temp 98.1; Pulse Ox 98% on R/A; Weight 83.91 kg; Height cm10 5 ft. 3 in. ; Pain 9/10; 17:07 BP 147 / 87; Pulse 80; Resp 16; Pulse Ox 100% on R/A; hb 13:44 Body Mass Index 32.77 (83.91 kg, 160.02 cm) cm10 13:44 Pain Scale: Adult cm10 MDM: 13:48 Medical Screening Exam initiated cp 15:00 Differential diagnosis: cardiac arrhythmia, CVA, GI bleed, head injury, hypovolemia, cp idiopathic dizziness, , sepsis, TIA. 17:02 Data reviewed: vital signs, nurses notes, lab test result(s), EKG, radiologic studies, cp CT scan, plain films, and as a result, I will discharge patient. 17:02 I considered the following discharge prescriptions or medication management in the emergency department Medications were administered in the Emergency Department. See MAR. Independent interpretation of the following test(s) in the Emergency Department EKG: See my EKG interpretation above. Care significantly affected by the following chronic conditions: seizure disorder. Counseling: I had a detailed discussion with the patient and/or guardian regarding the historical points, exam findings, and any diagnostic results supporting the discharge/admit diagnosis, lab results, radiology results, to return to the emergency department if symptoms worsen or persist or if there are any questions or concerns that arise at home. Response to treatment: the patient's symptoms have mildly improved after treatment, and as a result, I will discharge patient. 11/07 14:07 Order name: Basic Metabolic Panel; Complete Time: 16:54 11/07 16:54 Interpretation: Normal except: GLUC 109. 11/07 14:07 Order name: CBC with Diff; Complete Time: 16:44 11/07 16:45 Interpretation: Reviewed. 11/07 14:07 Order name: LFT's; Complete Time: 16:54 11/07 14:07 Order name: Magnesium; Complete Time: 16:54 11/07 14:07 Order name: PT-INR; Complete Time: 16:44 11/07 14:07 Order name: Troponin HS; Complete Time: 16:54 11/07 16:54 Interpretation: Reviewed. 11/07 14:07 Order name: Urinalysis w/ reflexes; Complete Time: 16:44 11/07 16:45 Interpretation: Normal except: [facility] Extremely Turbid; UBLD 3+; UPH 7.5; UESTR 75; URBC cp 5-10; DAVID Cx 3+. 11/07 14:07 Order name: Test, Urine; Complete Time: 16:44 11/07 14:07 Order name: XRAY Chest (1 view); Complete Time: 15:36 11/07 14:29 Order name: CT Head Brain wo Cont; Complete Time: 15:36 11/07 15:37 Interpretation: Report reviewed. 11/07 14:07 Order name: EKG; Complete Time: 14:08 cp 11/07 14:07 Order name: EKG - Nurse/Tech; Complete Time: 17:07 cp 11/07 14:07 Order name: IV Saline Lock; Complete Time: 16:12 cp 11/07 14:07 Order name: Labs collected and sent; Complete Time: 16:12 11/07 14:07 Order name: O2 Per Protocol; Complete Time: 17:07 11/07 14:07 Order name: O2 Sat Monitoring; Complete Time: 17:07 EC:05 Rate is 81 beats/min. Rhythm is regular. HI interval is normal. QRS interval is normal. cp QT interval is normal. T waves are Inverted in lead aVR. Interpreted by me. Reviewed by me. Administered Medications: 16:07 Drug: NS 0.9% IV 1000 ml IV at 1000 ml once; to be given as a bolus over 60 minutes hb Route: IV; Rate: 1000 ml; Site: left antecubital; 17:00 Follow up: Response: No adverse reaction; IV Status: Completed infusion; IV Intake: hb 1000ml 16:07 Drug: Ondansetron IVP 4 mg IVP once; over 2 minutes Route: IVP; Site: left antecubital; hb 16:36 Follow up: Response: No adverse reaction hb 16:07 Drug: Meclizine PO 25 mg PO once Route: PO; hb 17:00 Follow up: Response: No adverse reaction hb Disposition Summary: 11/07/24 17:03 Discharge Ordered Notes: Location: Home cp Problem: new cp Symptoms: have improved cp Condition: Stable cp Diagnosis - Dizziness and giddiness cp - Nausea cp - Chest pain, unspecified cp Followup: cp - With: Private Physician - When: 2 - 3 days - Reason: Recheck today's complaints Discharge Instructions: - Discharge Summary Sheet cp - Nonspecific Chest Pain, Adult cp - Dizziness cp - Nausea, Adult cp Forms: - Medication Reconciliation Form cp - Antibiotic Education cp - Prescription Opioid Use cp - Patient Portal Instructions cp - Leadership Thank You Letter cp Prescriptions: - Meclizine 25 mg Oral Tablet - take 1 tablet ORAL route every 8 hours As needed; 30 tablet; Refills: 0, cp Product Selection Permitted - Zofran 4 mg Oral Tablet - take 1 tablet ORAL route every 12 hours As needed; 20 tablet; Refills: 0, cp Product Selection Permitted Addendum: 11/09/2024 09:34 Co-signature as Attending Physician, Steve Castaneda MD I agree with the assessment and c vaughn plan of care. Signatures: Dispatcher [employer] EDSteve Becker MD MD cha Page, Corey, PA PA Ania Anderson, RN RN Lottie Gutiérrez RN RN cm10
--- NOTE | 2024-11-07 17:04 | ER ---
Nurse's Notes [facility] Name: Luana Mcneil Age: 44 yrs Sex: Female : 1980 Arrival Date: 11/07/2024 Time: 13:30 Bed DX4 Private MD: Diagnosis: Dizziness and giddiness;Nausea;Chest pain, unspecified Presentation: 11/07 13:44 Chief complaint: EMS states: Called to the [facility] due to patient having dizziness and cm10 nausea onset this morning. Pt also reports chest tightness. Coronavirus screen: Client denies travel out of the [place] in the last 14 days. Ebola Screen: Patient denies travel to an Ebola-affected area in the 21 days before illness onset. Initial Sepsis Screen: Does the patient meet any 2 criteria? No. Patient's initial sepsis screen is negative. Does the patient have a suspected source of infection? No. Patient's initial sepsis screen is negative. Risk Assessment: Do you want to hurt yourself or someone else? Patient reports no desire to harm self or others. Onset of symptoms was November 07, 2024. Care prior to arrival: Glucose check: 121. 13:44 Method Of Arrival: EMS: [facility] cm10 13:44 Acuity: BRAYAN 3 cm10 Triage Assessment: 13:46 General: Appears in no apparent distress. comfortable, Behavior is calm, cooperative, cm10 appropriate for age. Neuro: No deficits noted. Level of Consciousness is awake, alert, obeys commands, Oriented to person, place, time, situation, Appropriate for age. Respiratory: No deficits noted. Airway is patent Respiratory effort is even, unlabored, Respiratory pattern is regular, symmetrical. Historical: - Allergies: 13:45 No Known Allergies; cm10 - Home Meds: 13:45 Tegretol 200 mg Oral tablet 2 times per day [Active]; Effexor Oral 175 mg daily cm10 [Active]; gabapentin 600 mg Oral tablet 2 times per day [Active]; - PMHx: 13:45 Bipolar disorder; neuropathy; panic attack; Seizure; cm10 - PSHx: 13:45 Ligation of fallopian tube; cm10 - Immunization history:: Adult Immunizations up to date. - Infectious Disease History:: Denies. - Social history:: Smoking status: Patient reports the use of cigarette tobacco products, smokes one-half pack cigarettes per day. Vital Signs: 13:44 BP 117 / 75; Pulse 85; Resp 15; Temp 98.1; Pulse Ox 98% on R/A; Weight 83.91 kg; Height cm10 5 ft. 3 in. ; Pain 9/10; 17:07 BP 147 / 87; Pulse 80; Resp 16; Pulse Ox 100% on R/A; hb 13:44 Body Mass Index 32.77 (83.91 kg, 160.02 cm) cm10 13:44 Pain Scale: Adult cm10 ED Course: 13:35 Patient arrived in ED. al6 13:45 Triage completed. cm10 13:46 Arm band placed on right wrist. Patient placed in waiting room, in a wheelchair. cm10 13:47 Steve Trevino PA is PHCP. cp 13:47 Steve Castaneda MD is Attending Physician. cp 14:57 XRAY Chest (1 view) In Process Unspecified. EDMS 15:04 CT Head Brain wo Cont In Process Unspecified. EDMS 15:30 Alexandra Israel RN is Primary Nurse. ph 16:13 Inserted saline lock: 22 gauge in left forearm, using aseptic technique. Blood kc6 collected. Flushed with 10 mL NS. 16:13 Initial lab(s) drawn, by me, sent to lab. Urine collected: clean catch specimen, cloudy.kc6 Administered Medications: 16:07 Drug: NS 0.9% IV 1000 ml IV at 1000 ml once; to be given as a bolus over 60 minutes hb Route: IV; Rate: 1000 ml; Site: left antecubital; 17:00 Follow up: Response: No adverse reaction; IV Status: Completed infusion; IV Intake: hb 1000ml 16:07 Drug: Ondansetron IVP 4 mg IVP once; over 2 minutes Route: IVP; Site: left antecubital; hb 16:36 Follow up: Response: No adverse reaction hb 16:07 Drug: Meclizine PO 25 mg PO once Route: PO; hb 17:00 Follow up: Response: No adverse reaction hb Intake: 17:00 IV: 1000ml; Total: 1000ml. hb Outcome: 17:03 Discharge ordered by . cp 17:12 Patient left the ED. hb Signatures: Dispatcher [employer] EDPA Alexandra Israel RN RN Steve Hall PA PA cp Baxter, Heather, RN RN hb Elsa Urbina, RN RN kc6 Lottie Gutiérrez, RN RN cm10 Kaia yL
--- NOTE | 2024-11-09 11:55 | EKG ---
Test Date: 2024-11-07 Test Time: 16:58:37 Video Presentation Operator: Maru SI MEASUREMENT RESULTS: Intervals: Rate: 0 DE: QRSD: 0 QT: 0 QTc: 0 [place]: P: DE: QRS: 0 T: 0 INTERPRETIVE STATEMENTS: No QRS complexes found, no ECG analysis possible Compared to ECG 09/30/2023 15:26:47 Sinus tachycardia no longer present Electronically Signed On 11-09-24 11:54:18 CRITICAL CARE SPECIALIST by Rahat Quigley
--- NOTE | 2024-11-09 11:55 | EKG ---
Test Date: 2024-11-07 Test Time: 17:01:10 Drywall Finisher Foreman: Maru FRY MEASUREMENT RESULTS: Intervals: Rate: 81 KS: 138 QRSD: 86 QT: 384 QTc: 446 [place]: P: 57 KS: 138 QRS: 59 T: 64 INTERPRETIVE STATEMENTS: Normal sinus rhythm Normal ECG Compared to ECG 11/07/2024 16:58:37 No significant changes Electronically Signed On 11-09-24 11:54:08 NET SOLUTIONS ARCHITECT by Rahat Quigley
[2024-11-10 01:32] VITALS: BP 147/87; TEMP 98.1; O2SAT 100
== END 2024-11-07 17:12 | disposition home or self-care (01) ==
LOC: ER 13:30
DX: R42 Dizziness and giddiness (principal); R07.9 Chest pain, unspecified; R11.0 Nausea; F17.210 Nicotine dependence, cigarettes, uncomplicated
CPT/HCPCS: 96361; 93005 ×2; 85025; 81001; 80048; 36415; 83735; 81025; 85610; 80076; 84484; 70450; 71045; 96374; 99284; J8597; J2405; J7030

== ENCOUNTER 2024-12-08 08:23 | Emergency (ER) | payer OTHER ==
--- OUTSIDE RECORDS SUMMARY | 2024-12-08 08:26 | XMS REPORT | Continuity of Care Document ---
Author Name Unknown Address [address] [place] [id number] [facility] thconnect Address [address] [place] [address] Care Team Providers Care Demolitionist Name Role Phone Unavailable Unavailable Unavailable Encounters Start Date/Time End Date/Time Encounter Type Admission Type Attending Clinicians Care Facility Care Department Encounter ID Source 2019-11-29 22:11:00 2019-11-29 22:11:00 Emergency E [facility] [id number] [facility] 2019-08-25 18:46:00 2019-08-25 18:46:00 Emergency E [facility] [id number] [facility] 2019-04-30 06:41:00 2019-04-30 06:41:00 Emergency E [facility] [id number] [facility]
[2024-12-08] MEDS ORDERED: ACETAMINOPHEN 500 MG TAB ONE (08:40)
[2024-12-08] MEDS ORDERED: KETOROLAC 30 MG/ML INJ ONE (08:41)
[2024-12-08] MEDS ORDERED: methocarbamoL 500 MG TAB ONE (08:41)
--- NOTE | 2024-12-08 09:13 | RAD REPORT ---
EXAMINATION: XR Ankle Right 3 View CLINICAL INDICATION: Female, 44 years old. [facility] MA[facility] R ankle injury Bed Name: 19 TECHNIQUE: 3 view radiographs of the right ankle were obtained. COMPARISON: No prior exam. FINDINGS: No bone or joint abnormality seen. Soft tissue swelling about the ankle anteriorly. IMPRESSION: No acute osseous abnormalities. Anterior soft tissue swelling.
--- NOTE | 2024-12-08 09:17 | ER ---
Nurse's Notes [facility] Name: Luana Mcneil Age: 44 yrs Sex: Female : 1980 Arrival Date: 12/08/2024 Time: 08:23 Bed 19 Private MD: Diagnosis: Sprain of ankle Presentation: 12/08 08:34 Chief complaint: Patient states: R ankle/foot pain since yesterday day after stepping ss into a hole. Coronavirus screen: Client denies travel out of the [place] in the last 14 days. Ebola Screen: Patient denies exposure to infectious person. Patient denies travel to an Ebola-affected area in the 21 days before illness onset. Initial Sepsis Screen: Does the patient meet any 2 criteria? No. Patient's initial sepsis screen is negative. Does the patient have a suspected source of infection? No. Patient's initial sepsis screen is negative. Risk Assessment: Do you want to hurt yourself or someone else?. Onset of symptoms was December 07, 2024. 08:34 Method Of Arrival: Wheelchair ss 08:34 Acuity: BRAYAN 4 ss FUMIGATOR AND STERILIZER: 08:35 unknown, unknown. Pt states, "I was spotting this week, but it stopped. HX of ss tubal ligation." Historical: - Allergies: 08:35 No Known Allergies; ss - PMHx: 08:35 Bipolar disorder; neuropathy; panic attack; Seizure; ss - PSHx: 08:35 Ligation of fallopian tube; ss Screenin:45 [facility] ED Fall Risk Assessment (Adult) History of falling in the last 3 months, aa5 including since admission Yes- single mechanical fall (1 pt) Confusion or Disorientation No (0 pts) Intoxicated or Sedated No (0 pts) Impaired Gait Yes (1 pt) Mobility Assist Device Used No (0 pt) Altered Elimination No (0 pt) Score/Fall Risk Level 0 - 2 = Low Risk Oriented to surroundings, Maintained a safe environment, Educated pt \\T\\ family on fall prevention, incl call for assistance when getting out of bed, Assessed \\T\\ reinforced patient's understanding of fall precautions. Abuse screen: Denies threats or abuse. Nutritional screening: No deficits noted. Tuberculosis screening: No symptoms or risk factors identified. Assessment: 08:45 General: Appears uncomfortable, Behavior is calm, cooperative. Pain: Complains of pain aa5 in right ankle Pain currently is 10 out of 10 on a pain scale. Neuro: Level of Consciousness is awake, alert, obeys commands, Oriented to person, place, time, situation. Cardiovascular: Patient's skin is warm and dry. Respiratory: Airway is patent Respiratory effort is even, unlabored, Respiratory pattern is regular, symmetrical. GI: No signs and/or symptoms were reported involving the gastrointestinal system. : No signs and/or symptoms were reported regarding the genitourinary system. EENT: No signs and/or symptoms were reported regarding the EENT system. Derm: Skin is pink, warm \\T\\ dry. Musculoskeletal: Reports pain in right ankle. 09:40 Reassessment: Patient is alert, oriented x 3, equal unlabored respirations, skin aa5 warm/dry/pink. Vital Signs: 08:34 BP 129 / 68; Pulse 96; Resp 17; Temp 98(TE); Pulse Ox 98% on R/A; Weight 83.91 kg; ss Height 5 ft. 2 in. ; Pain 10/10; 08:34 Body Mass Index 33.84 (83.91 kg, 157.48 cm) ss 08:34 Pain Scale: Adult ss ED Course: 08:26 Patient arrived in ED. al6 08:27 Cullen Amaro MD is Attending Physician. ec2 08:33 Em Verduzco, RN is Primary Nurse. aa5 08:35 Triage completed. ss 08:35 Arm band placed on right wrist. ss 08:45 Patient has correct armband on for positive identification. Bed in low position. Call aa5 light in reach. Side rails up X 1. 09:03 Ankle Right 3 View XRAY In Process Unspecified. EDMS 09:37 Crutch training done. Pato wrap to right ankle. em1 09:40 No provider procedures requiring assistance completed. Patient did not have IV access aa5 during this emergency room visit. Administered Medications: 08:50 Drug: Ketorolac IM 30 mg IM once Route: IM; Site: right gluteus; aa5 09:40 Follow up: Response: No adverse reaction aa5 08:50 Drug: Acetaminophen PO 1000 mg PO once Route: PO; aa5 09:40 Follow up: Response: No adverse reaction aa5 08:50 Drug: Methocarbamol PO 500 mg PO once Route: PO; aa5 :40 Follow up: Response: No adverse reaction aa5 Medication: :40 VIS not applicable for this client. aa5 Outcome: :17 Discharge ordered by . ec2 :40 Discharged to home ambulatory, with crutches, with significant other, aa5 :40 Condition: stable :40 Discharge instructions given to patient, Instructed on discharge instructions, follow up and referral plans. medication usage, Demonstrated understanding of instructions, follow-up care, medications, Prescriptions given X 1, :46 Patient left the ED. aa5 Signatures: Dispatcher [employer] Elio Cleaning em1 Em Verduzco RN RN aa5 Layla Agrawal RN RN ss Corral, Edwin, MD MD ec2 Kaia Ly6
--- NOTE | 2024-12-08 09:17 | EDPHYS ---
Physician Documentation [facility] Name: Luana Mcneil Age: 44 yrs Sex: Female : 1980 Arrival Date: 12/08/2024 Time: 08:23 Bed 19 Private MD: ED Physician Cullen Amaro HPI: 12/08 08:32 This 44 yrs old Female presents to ER via Unassigned with complaints of Ankle ec2 Injury. 08:32 Patient arrives today for evaluation of a right ankle injury. States that yesterday she ec2 stepped into a hole and twisted her ankle. No other injuries or concerns.. SETTER AUTOMATIC SPINNING LATHE: 08:35 unknown, unknown. Pt states, "I was spotting this week, but it stopped. HX of ss tubal ligation." Historical: - Allergies: 08:35 No Known Allergies; ss - PMHx: 08:35 Bipolar disorder; neuropathy; panic attack; Seizure; ss - PSHx: 08:35 Ligation of fallopian tube; ss ROS: 08:32 Constitutional: as per hpi ec2 Exam: 08:32 Constitutional: GEN: NAD Head: atraumatic Eyes: EOMI Ears: External ears are ec2 normal. CV: regular rate LUNGS: no respiratory distress ABD: non-distended SKIN: no evidence of rashes MSK: Right ankle with TTP on the lateral aspect of the ankle, tenderness of the dorsum of the foot as well, no deformities, intact distal neurovascular status. Vital Signs: 08:34 BP 129 / 68; Pulse 96; Resp 17; Temp 98(TE); Pulse Ox 98% on R/A; Weight 83.91 kg; ss Height 5 ft. 2 in. ; Pain 10/10; 08:34 Body Mass Index 33.84 (83.91 kg, 157.48 cm) ss 08:34 Pain Scale: Adult ss MDM: 08:27 Medical Screening Exam initiated ec2 08:32 Data reviewed: vital signs, nurses notes. ED course: Patient arrives today for right ec2 ankle injury. Examination yields MSK findings as above. Will obtain radiograph of the right ankle. Differential includes ankle sprain, ankle fracture.. 09:16 ED course: Ankle x-ray independently reviewed and interpreted by me, shows no bony ec2 fracture. Will discharge home, presentation consistent with ankle sprain. Return precautions given. 12/08 08:32 Order name: Ankle Right 3 View XRAY; Complete Time: 09:16 ec2 12/08 09:17 Order name: Pato Wrap; Complete Time: 09:37 ec2 12/08 09:46 Order name: Crutches; Complete Time: 09:46 aa5 Administered Medications: 08:50 Drug: Ketorolac IM 30 mg IM once Route: IM; Site: right gluteus; aa5 09:40 Follow up: Response: No adverse reaction aa5 08:50 Drug: Acetaminophen PO 1000 mg PO once Route: PO; aa5 09:40 Follow up: Response: No adverse reaction aa5 08:50 Drug: Methocarbamol PO 500 mg PO once Route: PO; aa5 09:40 Follow up: Response: No adverse reaction aa5 Disposition Summary: 12/08/24 09:17 Discharge Ordered Notes: Location: Home ec2 Condition: Stable ec2 Diagnosis - Sprain of ankle ec2 Followup: ec2 - With: Private Physician - When: - Reason: Re-evaluation by your physician Discharge Instructions: - Discharge Summary Sheet ec2 - Ankle Sprain, [id number] ec2 Forms: - Medication Reconciliation Form ec2 - Antibiotic Education ec2 - Prescription Opioid Use ec2 - Patient Portal Instructions ec2 - Leadership Thank You Letter ec2 Prescriptions: - methocarbamol 500 mg Oral tablet - take 2 tablets ORAL route 4 times per day; 30 tablet; Refills: 0, Product ec2 Selection Permitted Signatures: Dispatcher [employer] Em Agustin RN RN aa5 Layla Agrawal RN RN Cullen Amaro MD MD ec2
[2024-12-08 09:51] VITALS: BP 129/68; TEMP 98; O2SAT 98
== END 2024-12-08 09:46 | disposition home or self-care (01) ==
LOC: ER 08:23
DX: S93.401A Sprain of unspecified ligament of right ankle, initial encounter (principal)
CPT/HCPCS: 96372; 99284

== ENCOUNTER 2025-01-02 08:42 | Emergency (ER) | payer OTHER ==
--- OUTSIDE RECORDS SUMMARY | 2025-01-02 08:45 | XMS REPORT | Continuity of Care Document ---
Author Name Unknown Address [address] [place] [address] [facility] Address [address] [place] [address] Care Team Providers Care Human Resources Admin Name Role Phone Unavailable Unavailable Unavailable Encounters Start Date/Time End Date/Time Encounter Type Admission Type Attending Clinicians Care Facility Care Department Encounter ID Source 2019-11-29 22:11:00 2019-11-29 22:11:00 Emergency E [facility] [id number] [facility] 2019-08-25 18:46:00 2019-08-25 18:46:00 Emergency E [facility] [id number] [facility] 2019-04-30 06:41:00 2019-04-30 06:41:00 Emergency E [facility] [address] [facility]
[2025-01-02] MEDS ORDERED: ACETAMINOPHEN 500 MG TAB ONE (09:05)
[2025-01-02] MEDS ORDERED: NA CHLORIDE 0.9% 1,000 ML ONE (09:06)
[2025-01-02 09:38] LABS: Absolute Lymphocytes (CBC) 1.7 K/uL (0.7-4.9); Absolute Monocytes 1.1 K/uL (0.1-1.3); Absolute Neutrophil 7.7 K/uL (1.8-8.0); Basophils % 0.2 % (0-1.3); Eosinophils % 0.1 % (0-4.4); Hematocrit 34.4 % (36.0-45.0); Hemoglobin 11.6 g/dL (12.0-15.0); Lymphocytes % 16.3 % (15.3-44.8); MCH 29.4 pg (27.0-35.0); MCHC 33.8 g/dL (32.0-36.0); MCV 86.9 fL (80-100); MPV 9.1 fL (7.6-11.3); Monocytes % 10.3 % (3.3-12.3); Neutrophils % 73.1 % (41.7-73.7); Platelets 224 thou/uL (152-406); RBC Red Blood Cell Count 3.96 M/uL (3.86-4.86); Red Cell Distribution Width 13.6 % (12.1-15.2)
[2025-01-02 09:47] LABS: Specific Gravity 1.015 (1.005-1.030)
[2025-01-02 10:18] LABS: Albumin 2.6 g/dL (3.4-5.0); Albumin/Globulin Ratio 0.7 (1.1-1.8); Anion Gap 7.8 mEq/L (5.0-15.0); Bilirubin Total 0.2 mg/dL (0.2-1.0); Globulin 3.8 g/dL (2.3-3.5); Potassium 3.8 mEq/L (3.5-5.1); Protein, Total 6.4 g/dL (6.4-8.2)
[2025-01-02 10:50] LABS: Specific Gravity 1.015 (1.005-1.030); Sqamous Epithelial <5 /HPF (None Seen); Transitional Epithelial <5 /HPF (None Seen); Urine Bacteria 20-50 /HPF (<20); Urine Bilirubin NEGATIVE (Negative); Urine Blood Negative (Negative); Urine Clarity Extremely Turbid (Clear); Urine Color Light-Yellow (Yellow); Urine Glucose NEGATIVE (Negative); Urine Ketones NEGATIVE (Negative); Urine Micro Reflex YN NO BILL MICROSCOPIC; Urine Mucus Slight /HPF (None Seen); Urine Nitrite NEGATIVE (Negative); Urine Protein TRACE (Negative); Urine RBC <5 /HPF (None Seen); Urine Urobilinogen Normal (Normal); Urine WBC >50 /HPF (<5); Urine pH 6.5 (5.0-7.0)
[2025-01-02 10:54] LABS: Urine Culture Reflex Order ND
--- NOTE | 2025-01-02 10:56 | RAD REPORT ---
EXAMINATION: ONE VIEW CHEST XR CLINICAL INDICATION: Female, 44 years old.,CHEST PAIN TECHNIQUE: Frontal chest projection is submitted. Examination is limited by patient positioning and t echnique. COMPARISON: 11/07/2024 FINDINGS: The lungs are well inflated and clear. Superimposition of soft tissue somewhat limits evaluation. No pneumothorax or sizable effusion. The heart is normal in size. Mediastinal contours are unremarkable. IMPRESSION: No acute intrathoracic abnormalities.
[2025-01-02] MEDS ORDERED: CEFTRIAXONE 1000 MG/VIAL ONE (11:14)
[2025-01-02] MEDS ORDERED: LIDOCAINE 1% MPF 5 ML VIAL ONE (11:14)
--- NOTE | 2025-01-02 11:54 | EDPHYS ---
Physician Documentation [facility] Name: Luana Mcneil Age: 44 yrs Sex: Female : 1980 Arrival Date: 01/02/2025 Time: 08:42 Bed 7 Private MD: ED Physician Ar Barriga HPI: 01/02 09:04 44-year-old female comes to the emergency department for evaluation of left flank pain, jj9 fever and bodyaches of 1 day duration. The patient reports symptoms started yesterday. Past medical history significant for seizures. She denies any other sick contacts. Denies dysuria, hematuria, chest pain or shortness of breath.. 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 Flu vaccine is not up to date. - Infectious Disease History:: Denies. - Social history:: Smoking status: Patient reports the use of cigarette tobacco products, smokes one-half pack cigarettes per day. ROS: 09:05 Abdomen/GI: Positive for abdominal pain, jj9 20:02 Constitutional: fever and body aches Eyes: Negative for injury, pain, redness, and jj9 discharge, ENT: Negative for injury, pain, and discharge, Neck: Negative for injury, pain, and swelling, Cardiovascular: Negative for chest pain, palpitations, and edema, Respiratory: cough Abdomen/GI: suprapubic tenderness Back: Negative for injury and pain, MS/Extremity: Negative for injury and deformity, Skin: Negative for injury, rash, and discoloration, Neuro: Negative for headache, weakness, numbness, tingling, and seizure, Psych: Negative for depression, anxiety, suicide ideation, homicidal ideation, and hallucinations, Allergy/Immunology: Negative for hives, rash, and allergies, Exam: 09:06 Cardiovascular: Regular rate and rhythm with a normal S1 and S2. No gallops, murmurs, jj9 or rubs. Normal PMI, no JVD. No pulse deficits. Vital Signs: 08:45 BP 100 / 79; Pulse 118; Resp 18; Temp 100.6; Pulse Ox 100% ; Weight 93.5 kg; Pain 10/10;ap3 11:19 BP 109 / 72; Pulse 99; Resp 18; Pulse Ox 100% ; ld1 11:46 Temp 98.7(O); ap3 08:45 Pain Scale: Adult ap3 MDM: 08:49 Medical Screening Exam initiated [facility] 09:17 Differential diagnosis: viral Infection, bacterial infection, URI, UTI. Data reviewed: [facility] vital signs, nurses notes, EMS record. 11:16 I considered the following discharge prescriptions or medication management in the [facility] emergency department I discussed and recommended Over The Counter medications, Rocephin IM 1 g given. Independent interpretation of the following test(s) in the Emergency Department X-Ray: My interpretation is No acute intrathoracic abnormality on x-ray. Test considered but Not performed: CT: Patient appears in no distress abdominal exam is unremarkable suspect sinus symptoms related to UTI.. Medication response: acetaminophen administration has lowered the patient's temperature. Response to treatment: the patient's symptoms have markedly improved after treatment. ED course: 44-year-old female comes emergency department complaining of body aches low-grade temperature and not feeling well of 1 day duration. Exam reviewed, CBC with normal white blood cell count normal hemoglobin and platelets, chemistry within normal. Urinalysis significant for UTI with positive leukocyte esterase and bacteria. Patient is hemodynamically stable much improved after IV fluids and Tylenol. Dose of Rocephin was given. Will start the patient on Vantin orally p.o. twice daily for 7 days. Advised to continue medications, Tylenol Motrin as needed, follow-up PCP and return to the emergency department if worsening of symptoms or of any other problem. The patient understands and agrees with the plan.. 01/02 09:21 Order name: CBC with Automated Diff; Complete Time: 09:53 EDMS 01/02 09:21 Order name: Comprehensive Metabolic Panel; Complete Time: 10:28 EDMS 01/02 09:21 Order name: Lactate w/ 2H reflex if indic.; Complete Time: 10:08 EDMS 01/02 09:21 Order name: Lipase; Complete Time: 10:28 EDMS 01/02 09:21 Order name: Test, Urine; Complete Time: 09:53 EDPR 01/02 10:46 Order name: Urinalysis W/Microscopic; Complete Time: 11:00 [facility] 01/02 10:03 Order name: Chest Single View; Complete Time: 11:00 [facility] 01/02 08:59 Order name: IV Saline Lock; Complete Time: 09:02 [facility] 01/02 08:59 Order name: Labs collected and sent; Complete Time: 09:21 [facility] 01/02 09:00 Order name: Vital Signs; Complete Time: 09:02 j Administered Medications: 09:21 Drug: NS 0.9% IV 1000 ml IV at 1000 ml once; to be given as a bolus over 60 minutes ld1 Route: IV; Rate: 1000 ml; Site: left hand; 11:19 Follow up: Response: No adverse reaction; IV Status: Completed infusion; IV Intake: ld1 1000ml 09:21 Drug: Acetaminophen PO 1000 mg PO once Route: PO; ld1 11:18 Follow up: Response: No adverse reaction ld1 11:18 Drug: Rocephin (cefTRIAXone) IM 1 grams IM once Route: IM; Site: left gluteus; ld1 11:18 Follow up: Response: No adverse reaction ld1 Disposition Summary: 01/02/25 11:34 Discharge Ordered Notes: Location: Home jj9 Problem: new jj9 Condition: Stable jj9 Diagnosis - UTI/ Urinary tract infection, site not specified jj9 Followup: jj9 - With: Private Physician - When: 48 Hours - Reason: Re-evaluation by your physician Discharge Instructions: - Discharge Summary Sheet jj9 - Urinary Tract Infection, Adult, Cpte-[id number] jj9 Forms: - Medication Reconciliation Form jj9 - Antibiotic Education jj9 - Prescription Opioid Use jj9 - Patient Portal Instructions jj9 - Leadership Thank You Letter jj9 Prescriptions: - cefpodoxime 200 mg Oral tablet - take 1 tablet ORAL route every 12 hours for 7 days with food; 14 tablet; jj9 Refills: 0, Product Selection Permitted Signatures: Dispatcher [facility] Sandy Whitney RN RN ap3 Adriana Sheppard RN RN ld1 Ar Barriga MD MD jj9
--- NOTE | 2025-01-02 11:54 | ER ---
Nurse's Notes [facility] Name: Luana Mcneil Age: 44 yrs Sex: Female : 1980 Arrival Date: 01/02/2025 Time: 08:42 Bed 7 Private MD: Diagnosis: UTI/ Urinary tract infection, site not specified Presentation: 01/02 08:45 Chief complaint: Patient states: she has been having body aches, headache, nausea and ap3 chest pain since yesterday. patient currently rates her pain as a 10/10 on the pain scale. Coronavirus screen: Client presents with at least one sign or symptom that may indicate coronavirus-19. Ebola Screen: No symptoms or risks identified at this time. Initial Sepsis Screen: Does the patient meet any 2 criteria? HR > 90 bpm. Does the patient have a suspected source of infection? No. Patient's initial sepsis screen is negative. Risk Assessment: Do you want to hurt yourself or someone else? Patient reports no desire to harm self or others. Onset of symptoms was January 01, 2025. Care prior to arrival: Medication(s) given: ASA, 81 mg, x 4. 08:45 Method Of Arrival: EMS: [facility] ap3 08:45 Acuity: BRAYAN 3 ap3 Triage Assessment: 08:47 General: Appears ill, Behavior is calm, cooperative, appropriate for age. Pain: ap3 Complains of pain in head, generalized body aches, chest Pain currently is 10 out of 10 on a pain scale. Pain began 1 day ago. Neuro: Level of Consciousness is awake, alert, obeys commands, Oriented to person, place, time, situation, Appropriate for age Speech is normal. Cardiovascular: Reports chest pain, Patient's skin is warm and dry. Respiratory: Airway is patent Respiratory effort is even, unlabored, Respiratory pattern is regular, symmetrical. GI: Reports nausea. 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 Flu vaccine is not up to date. - Infectious Disease History:: Denies. - Social history:: Smoking status: Patient reports the use of cigarette tobacco products, smokes one-half pack cigarettes per day. Screenin:48 [facility] ED Fall Risk Assessment (Adult) History of falling in the last 3 months, ap3 including since admission Yes- single mechanical fall (1 pt) Confusion or Disorientation No (0 pts) Intoxicated or Sedated No (0 pts) Impaired Gait No (0 pts) Mobility Assist Device Used No (0 pt) Altered Elimination No (0 pt) Score/Fall Risk Level 0 - 2 = Low Risk Oriented to surroundings, Maintained a safe environment, Educated pt \T\ family on fall prevention, incl call for assistance when getting out of bed, Assessed \T\ reinforced patient's understanding of fall precautions, Hourly rounding (assess needs \T\ fall precautionary measures) done, Used ambulatory aids as needed (educated on \T\ assisted with). Abuse screen: Denies threats or abuse. Nutritional screening: No deficits noted. Tuberculosis screening: No symptoms or risk factors identified. Assessment: 10:27 General: Appears in no apparent distress. uncomfortable, Behavior is anxious, crying, ld1 fussy. Pain: Complains of pain in left low back Pain does not radiate. Pain currently is 8 out of 10 on a pain scale. Quality of pain is described as throbbing, Pain began suddenly, Is continuous. Neuro: Level of Consciousness is awake, alert, obeys commands, Oriented to person, place, time, situation. Cardiovascular: Rhythm is sinus tachycardia. Respiratory: Airway is patent Respiratory effort is even, unlabored. GI: Abdomen is round non-distended. Vital Signs: 08:45 BP 100 / 79; Pulse 118; Resp 18; Temp 100.6; Pulse Ox 100% ; Weight 93.5 kg; Pain 10/10;ap3 11:19 BP 109 / 72; Pulse 99; Resp 18; Pulse Ox 100% ; ld1 11:46 Temp 98.7(O); ap3 08:45 Pain Scale: Adult ap3 ED Course: 08:45 Patient arrived in ED. ap3 08:47 Triage completed. ap3 08:48 Arm band placed on right wrist. ap3 08:48 Patient has correct armband on for positive identification. Bed in low position. Call ap3 light in reach. Side rails up X2. Client placed on continuous cardiac and pulse oximetry monitoring. NIBP monitoring applied. ekg monitor on. Pulse ox on. NIBP on. 08:49 Ar Barriga MD is Attending Physician. jj9 08:57 Adriana Sheppard, RN is Primary Nurse. ld1 08:57 Inserted saline lock: 22 gauge in left hand, using aseptic technique. Blood collected. ld1 Flushed with 10 mL NS. 10:11 Chest Single View In Process Unspecified. EDMS 10:27 No provider procedures requiring assistance completed. ld1 11:46 Provided Education on: discharge instructions. ap3 11:46 IV discontinued, intact, bleeding controlled, No redness/swelling at site. Pressure ap3 dressing applied. Administered Medications: 09:21 Drug: NS 0.9% IV 1000 ml IV at 1000 ml once; to be given as a bolus over 60 minutes ld1 Route: IV; Rate: 1000 ml; Site: left hand; 11:19 Follow up: Response: No adverse reaction; IV Status: Completed infusion; IV Intake: ld1 1000ml 09:21 Drug: Acetaminophen PO 1000 mg PO once Route: PO; ld1 11:18 Follow up: Response: No adverse reaction ld1 11:18 Drug: Rocephin (cefTRIAXone) IM 1 grams IM once Route: IM; Site: left gluteus; ld1 11:18 Follow up: Response: No adverse reaction ld1 Medication: 10:27 VIS not applicable for this client. ld1 Intake: 11:19 IV: 1000ml; Total: 1000ml. ld1 Outcome: 11:34 Discharge ordered by . jj9 11:45 [facility] 11:45 Condition: good 11:45 Discharge instructions given to patient, Instructed on discharge instructions, follow up and referral plans. medication usage, Demonstrated understanding of instructions, follow-up care, medications, 11:45 Prescriptions given X 1, 11:53 Patient left the ED. ap3 Signatures: Dispatcher [employer] EDMS Sandy Whitney RN RN ap3 Adriana Sheppard RN RN ld1 Ar Barriga MD MD jj9
[2025-01-02 12:19] VITALS: O2SAT 100
[2025-01-02 12:20] VITALS: BP 109/72; TEMP 98.7
--- NOTE | 2025-01-05 14:54 | EKG ---
Test Date: 2025-01-02 Test Time: 08:48:36 Boat Ride Operator: Maru FRY MEASUREMENT RESULTS: Intervals: Rate: 113 VA: 130 QRSD: 80 QT: 298 QTc: 408 Wilson: P: 47 VA: 130 QRS: 60 T: 39 INTERPRETIVE STATEMENTS: Sinus tachycardia Otherwise normal ECG Compared to ECG 11/07/2024 17:01:10 Sinus rhythm no longer present Electronically Signed On 01-05-25 14:44:16 CDT by Rahat Quigley
== END 2025-01-02 11:53 | disposition home or self-care (01) ==
LOC: ER 08:42
DX: N39.0 Urinary tract infection, site not specified (principal)
CPT/HCPCS: 96361; 93005; 85025; 81001; 36415; 81025; 83605; 83690; 80053; 71045; 96360; 96372; 99285; J2003; J7030; J0696

== ENCOUNTER 2025-01-22 18:33 | Emergency (ER) | payer OTHER ==
--- OUTSIDE RECORDS SUMMARY | 2025-01-22 18:36 | XMS REPORT | Continuity of Care Document ---
Author Name Unknown Address [address] [place] [address] [facility] Address 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
[2025-01-22 19:10] LABS: Absolute Eosinophils 0.1 K/uL (0-0.5); Absolute Lymphocytes (CBC) 2.5 K/uL (0.7-4.9); Absolute Monocytes 0.4 K/uL (0.1-1.3); Basophils % 0.5 % (0-1.3); Eosinophils % 0.9 % (0-4.4); Hematocrit 29.9 % (36.0-45.0); Hemoglobin 10.1 g/dL (12.0-15.0); Lymphocytes % 41.3 % (15.3-44.8); MCH 28.9 pg (27.0-35.0); MCHC 33.8 g/dL (32.0-36.0); MCV 85.4 fL (80-100); MPV 9.4 fL (7.6-11.3); Monocytes % 7.5 % (3.3-12.3); Neutrophils % 49.8 % (41.7-73.7); Platelets 213 thou/uL (152-406); Red Cell Distribution Width 14.3 % (12.1-15.2)
[2025-01-22 19:17] LABS: PT Prothrombin Time 11.9 SECONDS (10-13.0); PTT, Activated Partial Thromb 34.7 SECONDS (27.2-37.4); Protime INR 1.05
[2025-01-22 19:32] LABS: ALT/SGPT 19 U/L (13-56); AST/SGOT 20 U/L (15-37); Albumin 3.2 g/dL (3.4-5.0); Albumin/Globulin Ratio 0.8 (1.1-1.8); Alkaline Phosphatase 61 U/L (45-117); Anion Gap 4.9 mEq/L (5.0-15.0); BUN Blood Urea Nitrogen 19 mg/dL (7-18); Bicarbonate 27 mEq/L (21-32); Bilirubin Total 0.2 mg/dL (0.2-1.0); Globulin 3.8 g/dL (2.3-3.5); Glomerular Filtration Rate 73 ml/min (=/>90); Glucose Level 115 mg/dL (74-106); Potassium 3.9 mEq/L (3.5-5.1); Sodium Level 140 mEq/L (136-145)
[2025-01-22 19:33] LABS: Bilirubin Direct < 0.2 mg/dL (0-0.2)
[2025-01-22 20:50] LABS: Specific Gravity 1.029 (1.005-1.030); Sqamous Epithelial <5 /HPF (None Seen); Urine Bacteria <20 /HPF (<20); Urine Bilirubin NEGATIVE (Negative); Urine Blood 3+ (OVER) (Negative); Urine Clarity Turbid (Clear); Urine Color Light-Yellow (Yellow); Urine Crystals Unidentified Few /HPF (None Seen); Urine Culture Reflex Order NOT NEEDED; Urine Glucose NEGATIVE (Negative); Urine Ketones NEGATIVE (Negative); Urine Microscopic Reflex YN ORDER UMIC; Urine Mucus 1+ /HPF (None Seen); Urine Nitrite NEGATIVE (Negative); Urine Protein TRACE (Negative); Urine RBC <5 /HPF (None Seen); Urine Urobilinogen Normal (Normal); Urine WBC <5 /HPF (<5); Urine WBC Clump Rare /HPF (None Seen); Urine pH 5.5 (5.0-7.0)
[2025-01-22 20:57] LABS: Barbiturates NEGATIVE (NEGATIVE); Benzodiazepines NEGATIVE (NEGATIVE); Cocaine NEGATIVE (NEGATIVE); METHAMPHETAM POSITIVE (NEGATIVE); Methadone NEGATIVE (NEGATIVE); Opiates NEGATIVE (NEGATIVE); Phencyclidine NEGATIVE (NEGATIVE); THC Cannibis NEGATIVE (NEGATIVE)
--- NOTE | 2025-01-22 21:17 | RAD REPORT ---
EXAMINATION: Head Brain Wo Cont CLINICAL INDICATION: Female, 44 years old.Headache;Seizure TECHNIQUE: Axial CT images from the skull base to the vertex without intravenous contrast. Coronal an d sagittal reformatted images were created from the data set. One or more of the following dose reduction techniques were used: Automated exposure control, adjustment of the mA and/or kV according to patient size, and/or iterative reconstruction. Unless otherwise specified, incidental findings do not require dedicated imaging follow-up. [id number]. COMPARISON: 11/07/2024 FINDINGS: INTRACRANIAL: No acute intracranial hemorrhage. No hydrocephalus. No mass effect or midline shift. No significant white matter disease. VASCULATURE: No visualized abnormalities in the arteries or dural venous sinuses. SCALP/SKULL: No calvarial fracture identified. No acute soft tissue abnormality. SINUSES: The visualized paranasal sinuses are mostly clear. No significant mastoid fluid. IMPRESSION: No acute intracranial abnormality.
[2025-01-22] MEDS ORDERED: LORazepam 2 MG/ML VIAL ONE (21:46)
[2025-01-22] MEDS ORDERED: carBAMazepine 200 MG TAB ONE (21:49)
[2025-01-22] MEDS ORDERED: NA CHLORIDE 0.9% 1,000 ML ONE (21:49)
--- NOTE | 2025-01-22 22:00 | ER ---
Nurse's Notes [facility] Name: Luana Mcneil Age: 44 yrs Sex: Female : 1980 Arrival Date: 01/22/2025 Time: 18:33 Bed 20 Private MD: Diagnosis: Other seizures;Adverse effect of amphetamines;Patient's other noncompliance with medication regimen Presentation: 01/22 18:36 Chief complaint: EMS states: TONED TO PATIENT'S HOME FOR SEIZURE. PT HAS A HISTORY OF cm10 SEIZURES. HASN'T HAD HER MEDS IN 1 WEEK. PT A\\T\\OX4 IN TRIAGE ASKING ALL QUESTIONS APPROPRIATELY. PT CRYING AT THIS TIME. PT COMPLAINING OF HEADACHE AND STATES, "I AM SEEING PEOPLE.". Coronavirus screen: Client denies travel out of the [place] in the last 14 days. Ebola Screen: Patient denies travel to an Ebola-affected area in the 21 days before illness onset. Initial Sepsis Screen: Does the patient meet any 2 criteria? No. Patient's initial sepsis screen is negative. Does the patient have a suspected source of infection? No. Patient's initial sepsis screen is negative. Onset of symptoms was January 22, 2025. Care prior to arrival: Glucose check: 98. 18:36 Method Of Arrival: EMS: [facility] cm10 18:49 Risk Assessment: Do you want to hurt yourself or someone else? Other: PT STATES THAT cm10 SHE REFUSES TO ANSWER QUESTION. 18:49 Acuity: BRAYAN 3 cm10 Triage Assessment: 18:49 General: Appears in no apparent distress. uncomfortable, Behavior is agitated, anxious. cm10 Pain: Complains of pain in head, right leg and left leg. Neuro: No deficits noted. Level of Consciousness is awake, alert, obeys commands, Oriented to person, place, time, situation, Appropriate for age. Cardiovascular: Patient's skin is warm and dry. Respiratory: No deficits noted. Airway is patent Respiratory effort is even, unlabored, Respiratory pattern is regular, symmetrical. Derm: Skin is pink, warm \\T\\ dry. 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 - Infectious Disease History:: Denies. - Social history:: Smoking status: . Screenin:50 [facility] ED Fall Risk Assessment (Adult) History of falling in the last 3 months, cm10 including since admission No falls in past 3 months (0 pts) Confusion or Disorientation No (0 pts) Intoxicated or Sedated No (0 pts) Impaired Gait No (0 pts) Mobility Assist Device Used No (0 pt) Altered Elimination No (0 pt) Score/Fall Risk Level 0 - 2 = Low Risk Oriented to surroundings, Maintained a safe environment, Hourly rounding (assess needs \\T\\ fall precautionary measures) done. Abuse screen: Denies threats or abuse. Denies injuries from another. Nutritional screening: No deficits noted. Tuberculosis screening: No symptoms or risk factors identified. Assessment: 19:42 General: Appears in no apparent distress. comfortable, Behavior is calm, cooperative. al5 Pain: Denies pain. Neuro: Level of Consciousness is awake, alert, obeys commands, Oriented to person, place, time, situation. Cardiovascular: Capillary refill < 3 seconds Patient's skin is warm and dry. Respiratory: Airway is patent Respiratory effort is even, unlabored, Respiratory pattern is regular, symmetrical. GI: No signs and/or symptoms were reported involving the gastrointestinal system. : No signs and/or symptoms were reported regarding the genitourinary system. EENT: No signs and/or symptoms were reported regarding the EENT system. Derm: Skin is intact, is healthy with good turgor, Skin is pink, warm \\T\\ dry. normal. Musculoskeletal: No signs and/or symptoms reported regarding the musculoskeletal system. 21:57 Reassessment: Patient appears in no apparent distress at this time. No changes from al5 previously documented assessment. Patient and/or family updated on plan of care and expected duration. Pain level reassessed. Patient is alert, oriented x 3, equal unlabored respirations, skin warm/dry/pink. Vital Signs: 18:49 BP 120 / 65; Pulse 86; Resp 18; Temp 98.2(O); Pulse Ox 100% on R/A; Weight 77.11 kg; cm10 Height 5 ft. 3 in. ; Pain 10/10; 19:30 BP 102 / 57; Pulse 97; Resp 16; Pulse Ox 98% ; al5 20:00 BP 100 / 73; Pulse 90; Resp 18; Pulse Ox 100% ; al5 21:00 BP 106 / 49; Pulse 86; Resp 17; Pulse Ox 99% ; al5 21:41 BP 117 / 47; Pulse 81; Resp 17; Pulse Ox 100% ; al5 22:17 BP 100 / 56; Pulse 83; Resp 16; Pulse Ox 98% ; al5 18:49 Body Mass Index 30.11 (77.11 kg, 160.02 cm) cm10 18:49 Pain Scale: Adult cm10 [place] Coma Score: 18:49 Eye Response: spontaneous(4). Motor Response: obeys commands(6). Verbal Response: cm10 oriented(5). Total: 15. ED Course: 18:35 Patient arrived in ED. cm10 18:35 Steve Trevino PA is PHCP. cp 18:35 Steve Castaneda MD is Attending Physician. cp 18:37 Arm band placed on right wrist. Patient placed in an exam room, on a stretcher. cm10 18:49 Triage completed. cm10 18:50 Patient has correct armband on for positive identification. Bed in low position. Call cm10 light in reach. Side rails up X2. Pulse ox on. NIBP on. 18:58 Acetaminophen Sent. cm10 18:58 Basic Metabolic Panel Sent. cm10 18:58 CBC with Diff Sent. cm10 18:58 ETOH Level Sent. cm10 18:58 Hepatic Function Sent. cm10 18:58 PT-INR Sent. cm10 18:58 Test, Urine Sent. cm10 18:58 Ptt, Activated Sent. cm10 18:58 Salicylate Sent. cm10 18:58 Tegretol Level Sent. cm10 19:01 Initial lab(s) drawn, by nd, sent to lab. Inserted saline lock: 18 gauge in right cm10 forearm, using aseptic technique. Blood collected. Flushed with 10 mL NS. 19:05 Report given to ZARI BORREGO. cm10 19:41 Langhorst, Sandy, RN is Primary Nurse. al5 19:42 Seizure precautions initiated. al5 19:42 Provided Education on: plan of care. al5 19:51 EKG done, by ED staff, reviewed by Steve ALAMO. mm11 20:41 Urinalysis w/ reflexes Sent. mm11 20:41 Urine Drug Screen Sent. mm11 21:04 CT Head Brain wo Cont In Process Unspecified. EDMS 21:58 No provider procedures requiring assistance completed. al5 22:17 IV discontinued, intact, bleeding controlled, No redness/swelling at site. Pressure al5 dressing applied. Administered Medications: 21:54 Drug: Ativan IVP 1 mg IVP once Route: IVP; Site: right antecubital; al5 22:14 Follow up: Response: No adverse reaction; RASS: Alert and Calm (0) al5 21:54 Drug: carBAMazepine PO 200 mg PO once; if test negative Route: PO; al5 22:14 Follow up: Response: No adverse reaction; RASS: Alert and Calm (0) al5 21:55 Drug: NS 0.9% IV 1000 ml IV at 1000 ml once; to be given as a bolus over 60 minutes al5 Route: IV; Rate: 1000 ml; Site: right antecubital; 22:14 Follow up: Response: No adverse reaction; IV Status: Order to discontinue infusion; IV al5 Intake: 150ml Medication: 18:50 VIS not applicable for this client. cm10 Intake: 22:14 IV: 150ml; Total: 150ml. al5 Outcome: 21:59 Discharge ordered by MD. cp 22:17 Discharged to home ambulatory, with significant other, al5 22:17 Condition: good 22:17 Instructed on discharge instructions, follow up and referral plans. medication usage, Demonstrated understanding of instructions, follow-up care, medications, Prescriptions given X 2, 22:18 Patient left the ED. al5 Signatures: Dispatcher [employer] EDSteve Morel PA PA cp Martinez, Clarissa, RN RN cmSandy Johnson RN RN al5 jean-paul francisco mm11 Corrections: (The following items were deleted from the chart) 18:59 18:36 Chief complaint: EMS states: TONED TO PATIENT'S HOME FOR SEIZURE. PT HAS A cm10 HISTORY OF SEIZURES. HASN'T HAD HER MEDS IN 1 WEEK. PT A\\T\\OX4 IN TRIAGE ASKING ALL QUESTIONS APPROPRIATELY. PT CRYING AT THIS TIME. cm10 18:59 18:49 Risk Assessment: Do you want to hurt yourself or someone else? Patient reports no cm10 desire to harm self or others. cm10
--- NOTE | 2025-01-22 22:00 | EDPHYS ---
Physician Documentation [facility] Name: Luana Mcneil Age: 44 yrs Sex: Female : 1980 Arrival Date: 01/22/2025 Time: 18:33 Bed 20 Private MD: ED Physician Steve Castaneda HPI: 01/22 18:45 This 44 yrs old Female presents to ER via EMS with complaints of Seizure. cp 18:45 The patient presents the episode(s) was witnessed, by a significant other, boyfriend. cp Character of seizure(s): Loss of consciousness: the patient experienced loss of consciousness. Seizure onset: today. Seizure Hx: known seizure disorder and prescribed Tegretol 200 mg twice per day. Patient reports being off medication for past week. 18:45 Associated injury: The patient did not suffer any apparent associated injury. cp ASSISTANT TO THE DEAN: 21:59 Not al5 Historical: - Allergies: 18:35 No Known Allergies; cm10 - Home Meds: 18:35 Effexor Oral 175 mg daily [Active]; gabapentin 600 mg Oral tablet 2 times per day cm10 [Active]; Tegretol 200 mg Oral tablet 2 times per day [Active]; - PMHx: 18:35 Bipolar disorder; neuropathy; panic attack; Seizure; cm10 - PSHx: 18:35 Ligation of fallopian tube; cm10 - Immunization history:: Adult Immunizations up to date. - Infectious Disease History:: Denies. - Social history:: Smoking status: . ROS: 18:50 Constitutional: Negative for body aches, chills, fever, poor PO intake, cp 18:50 Cardiovascular: Negative for chest pain, edema, palpitations, cp 18:50 Respiratory: Negative for cough, shortness of breath, wheezing, 18:50 Eyes: Negative for injury, pain, redness, and discharge, cp 18:50 ENT: Negative for drainage from ear(s), ear pain, sore throat, difficulty swallowing, cp difficulty handling secretions, 18:50 Abdomen/GI: Negative for abdominal pain, vomiting, diarrhea, constipation, 18:50 Neuro: Negative for altered mental status, active seizure activity, 18:50 All other systems are negative, Exam: 18:55 Constitutional: The patient appears in no acute distress, alert, awake, cp non-diaphoretic, non-toxic, well developed, well nourished, anxious, uncomfortable, crying 18:55 Head/Face: Normocephalic, atraumatic. cp 18:55 Eyes: Periorbital structures: appear normal, Pupils: equal, round, and reactive to light and accomodation, Conjunctiva: normal, no exudate, no injection, Sclera: no appreciated abnormality, Lids and lashes: appear normal, bilaterally, 18:55 ENT: External ear(s): are unremarkable, Nose: is normal, Mouth: Lips: moist, Oral mucosa: moist, Posterior pharynx: Airway: no evidence of obstruction, patent, 18:55 Neck: ROM/movement: is normal, is supple, without pain, no range of motions limitations, no meningismus, no nuchal rigidity, 18:55 Chest/axilla: Inspection: normal, 18:55 Cardiovascular: Rate: normal, Rhythm: regular, 18:55 Respiratory: the patient does not display signs of respiratory distress, Respirations: normal, no use of accessory muscles, no retractions, labored breathing, is not present, Breath sounds: are clear throughout, no decreased breath sounds, no stridor, no wheezing, 18:55 Abdomen/GI: Inspection: abdomen appears normal, Palpation: abdomen is soft and non-tender, in all quadrants, 18:55 Neuro: Orientation: to person, place \T\ time. Mentation: able to follow commands, Motor: moves all fours, strength is normal, Sensation: no obvious gross deficits, 18:55 Psych: Behavior/mood is anxious, Affect is animated, Patient has no thoughts/intents to harm self or others. 19:39 ECG was reviewed by the Attending Physician. cp Vital Signs: 18:49 BP 120 / 65; Pulse 86; Resp 18; Temp 98.2(O); Pulse Ox 100% on R/A; Weight 77.11 kg; cm10 Height 5 ft. 3 in. ; Pain 10/10; 19:30 BP 102 / 57; Pulse 97; Resp 16; Pulse Ox 98% ; al5 20:00 BP 100 / 73; Pulse 90; Resp 18; Pulse Ox 100% ; al5 21:00 BP 106 / 49; Pulse 86; Resp 17; Pulse Ox 99% ; al5 21:41 BP 117 / 47; Pulse 81; Resp 17; Pulse Ox 100% ; al5 22:17 BP 100 / 56; Pulse 83; Resp 16; Pulse Ox 98% ; al5 18:49 Body Mass Index 30.11 (77.11 kg, 160.02 cm) cm10 18:49 Pain Scale: Adult cm10 [place] Coma Score: 18:49 Eye Response: spontaneous(4). Motor Response: obeys commands(6). Verbal Response: cm10 oriented(5). Total: 15. MDM: 18:40 Medical Screening Exam initiated parviz 21:58 Data reviewed: vital signs, nurses notes, lab test result(s), EKG, radiologic studies, cp CT scan, and as a result, I will discharge patient. 21:58 Differential diagnosis: cerebral vascular accident, drug overdose, cardiac arrhythmia, cp seizure, TIA. I considered the following discharge prescriptions or medication management in the emergency department Medications were administered in the Emergency Department. See MAR. Independent interpretation of the following test(s) in the Emergency Department EKG: See my EKG interpretation above. Care significantly affected by the following chronic conditions: seizure disorder. Counseling: I had a detailed discussion with the patient and/or guardian regarding the historical points, exam findings, and any diagnostic results supporting the discharge/admit diagnosis, lab results, radiology results, to return to the emergency department if symptoms worsen or persist or if there are any questions or concerns that arise at home. Response to treatment: the patient's symptoms have markedly improved after treatment, and as a result, I will discharge patient. 01/22 18:44 Order name: Acetaminophen; Complete Time: 20:30 01/22 20:30 Interpretation: Reviewed. 01/22 18:44 Order name: Basic Metabolic Panel; Complete Time: 20:30 01/22 19:41 Interpretation: Normal except: CL 112; ANION GAP 4.9; GLUC 115; BUN 19; GFR 73. 01/22 18:44 Order name: CBC with Diff; Complete Time: 19:41 01/22 19:41 Interpretation: Normal except: RBC 3.50; HGB 10.1; HCT 29.9. 01/22 18:44 Order name: ETOH Level; Complete Time: 19:41 01/22 18:44 Order name: Hepatic Function; Complete Time: 20:30 01/22 20:30 Interpretation: IBILI, CALC 0.0; ALB 3.2; GLOB 3.8; A/G 0.8; Reviewed. 01/22 18:44 Order name: PT-INR; Complete Time: 19:41 cp 01/22 18:44 Order name: Test, Urine; Complete Time: 21:20 cp 01/22 18:44 Order name: Ptt, Activated; Complete Time: 19:41 cp 01/22 18:44 Order name: Salicylate; Complete Time: 19:41 cp 01/22 18:44 Order name: Urinalysis w/ reflexes; Complete Time: 21:20 cp 01/22 21:20 Interpretation: Normal except: [place] Turbid; UBLD 3+ (OVER); UPROT TRACE. 01/22 18:44 Order name: Urine Drug Screen; Complete Time: 21:20 cp 01/22 21:21 Interpretation: Normal except: METHAMPHETAMINE POSITIVE. 01/22 18:45 Order name: Tegretol Level; Complete Time: 20:30 01/22 19:41 Order name: CT Head Brain wo Cont; Complete Time: 21:20 01/22 21:21 Interpretation: Report reviewed. 01/22 18:44 Order name: EKG; Complete Time: 18:45 cp 01/22 18:44 Order name: EKG - Nurse/Tech; Complete Time: 19:42 cp 01/22 18:44 Order name: IV Saline Lock; Complete Time: 18:58 01/22 18:44 Order name: Labs collected and sent; Complete Time: 18:58 01/22 18:44 Order name: Suicide Screening ([place]); Complete Time: 21:39 01/22 18:57 Order name: Seizure Precautions; Complete Time: 21:42 cp EC:39 Rate is 90 beats/min. Rhythm is regular. MI interval is normal. QRS interval is normal. cp QT interval is normal. T waves are Inverted in lead aVR. Interpreted by me. Reviewed by me. Administered Medications: 21:54 Drug: Ativan IVP 1 mg IVP once Route: IVP; Site: right antecubital; al5 22:14 Follow up: Response: No adverse reaction; RASS: Alert and Calm (0) al5 21:54 Drug: carBAMazepine PO 200 mg PO once; if test negative Route: PO; al5 22:14 Follow up: Response: No adverse reaction; RASS: Alert and Calm (0) al5 21:55 Drug: NS 0.9% IV 1000 ml IV at 1000 ml once; to be given as a bolus over 60 minutes al5 Route: IV; Rate: 1000 ml; Site: right antecubital; 22:14 Follow up: Response: No adverse reaction; IV Status: Order to discontinue infusion; IV al5 Intake: 150ml Disposition: 01/23 15:36 Co-signature as Attending Physician, Steve Castaneda MD I agree with the assessment and parviz plan of care. Disposition Summary: 01/22/25 21:59 Discharge Ordered Notes: Location: Home cp Problem: new cp Symptoms: have improved cp Condition: Stable cp Diagnosis - Other seizures cp - Adverse effect of amphetamines cp - Patient's other noncompliance with medication regimen cp Followup: cp - With: Private Physician - When: 2 - 3 days - Reason: Worsening of condition Discharge Instructions: - Discharge Summary Sheet cp - Medicine Refill at the Emergency Department cp - Seizure, Adult cp - Methamphetamines Use Disorder cp Forms: - Medication Reconciliation Form cp - Antibiotic Education cp - Prescription Opioid Use cp - Patient Portal Instructions cp - Leadership Thank You Letter cp Prescriptions: - Effexor XR 150 mg Oral Capsule, ER 24 hr - take 1 capsule ORAL route daily; 30 capsule; Refills: 0, Product Selection cp Permitted - Tegretol 200 mg Oral Tablet - take 1 tablet ORAL route every 12 hours; 60 tablet; Refills: 0, Product cp Selection Permitted Signatures: Dispatcher [employer] Steve Castellano MD MD cha Page, Corey, PA PA cp Martinez, Clarissa, RN RN cm10 Sandy Lopez RN RN al5 Corrections: (The following items were deleted from the chart) 01/22 18:45 18:45 ACETAMINOPHEN+C.LAB.BRZ ordered. EDMS EDMS 18:45 18:45 BASIC METABOLIC PANEL+C.LAB.BRZ ordered. EDMS EDMS 18:45 18:45 CBC+H.LAB.BRZ ordered. EDMS EDMS 18:45 18:45 ETHANOL+C.LAB.BRZ ordered. EDMS EDMS 18:45 18:45 HEPATIC FUNCTION+C.LAB.BRZ ordered. EDMS EDMS 18:45 18:45 PROTIME (+INR)+COAG.LAB.BRZ ordered. EDMS EDMS 18:45 18:45 Test, Urine+UC.LAB.BRZ ordered. EDMS EDMS 18:45 18:45 PTT, ACTIVATED+COAG.LAB.BRZ ordered. EDMS EDMS 18:45 18:45 SALICYLATE+C.LAB.BRZ ordered. EDMS EDMS 18:45 18:45 Urinalysis+U.LAB.BRZ ordered. EDMS EDMS 18:45 18:45 URINE DRUG SCREEN+UC.LAB.BRZ ordered. EDMS EDMS 18:45 18:45 CARBAMAZEPINE (TEGRETOL)+C.LAB.BRZ ordered. EDMS EDMS 21:39 20:33 Maldonado ordered. cp al5
[2025-01-22 22:41] VITALS: TEMP 98.2
[2025-01-22 22:50] VITALS: BP 100/56; O2SAT 98
--- NOTE | 2025-01-23 12:18 | EKG ---
Test Date: 2025-01-22 Test Time: 19:37:07 Egg Buyer: KILEY MEASUREMENT RESULTS: Intervals: Rate: 90 AL: 128 QRSD: 88 QT: 366 QTc: 447 [place]: P: 48 AL: 128 QRS: 41 T: 33 INTERPRETIVE STATEMENTS: Normal sinus rhythm Normal ECG Compared to ECG 01/02/2025 08:48:36 Sinus tachycardia no longer present Electronically Signed On 01-23-25 12:17:50 CDT by Rahat Quigley
== END 2025-01-22 22:18 | disposition home or self-care (01) ==
LOC: ER 18:33
DX: G40.802 Other epilepsy, not intractable, without status epilepticus (principal); T43.625A Adverse effect of amphetamines, initial encounter; Z91.148 Patient's other noncompliance with medication regimen for other reason; F31.9 Bipolar disorder, unspecified
CPT/HCPCS: 93005; 85025; 81001; 80048; 36415; 80156; 81025; 85610; 80076; 85730; 80307; 70450; 96374; 99285; 80143; 80179; 82077; J7030